=== PATIENT | male | born 1980 | race Caucasian/White ===

== ENCOUNTER 2020-08-24 11:08 | Observation (INO) | payer SELFPAY ==
[2020-08-24] VITALS (16 sets, daily range): BP systolic 114–150; BP diastolic 70–89; PULSE 80–122; RESP 11–26; TEMP 36.6–37.3; O2SAT 98–100; BMI 22.2
--- NOTE | ~2020-08-24 | US_ITS ---
EXAMINATION: US abdomen limited EXAM DATE: 08/24/2020 14:07 INDICATION: Abnormal liver function tests. TECHNIQUE: Multiple grayscale and Doppler images of the abdomen right upper quadrant were obtained (areli y a technologist who performed the scan) and subsequently reviewed. There is no prior study for bowen mary. FINDINGS: The pancreatic head and body are normal in appearance. The pancreatic tail is not visualized. The l iver has normal echogenicity and contour. There are no focal liver lesions identified. There is no evidence of intrahepatic biliary duct dilation. Portal venous flow was seen in the hepatopedal, nor mal direction and has normal Doppler waveform. No right-sided hydronephrosis. Common bile duct measures 3 mm, which is normal. The gallbladder wall is normal in thickness, with ex pected amount of distention. No sonographic evidence of pericholecystic fluid. There is no cholelit hiases. Technologist performing exam reports patient did not demonstrate sonographic Gama's sign. Please note that this sign is less reliable in patients who have received pain medication. IMPRESSION: 1. Unremarkable abdominal ultrasound exam. Reviewed, dictated and finalized at location B.
[2020-08-24 11:44] LABS: Basophils Absolute Auto 0.1 K/mm3 (0.0-0.1); Basophils Percent Auto 0.8 % (0.2-1.2); Eosinophils Absolute Auto 0.1 K/mm3 (0-0.3); Eosinophils Percent Auto 0.8 % (0-4.4); Hematocrit 47.5 % (42.0-52.0); Hemoglobin 16.3 g/dL (14.0-18.0); Immature Granulocyte Absolute 0.06 K/mm3 (0.00-0.031); Immature Granulocyte Percent A 0.5 % (0-0.5); Lymphocytes Absolute Auto 1.47 K/mm3 (0.9-3.2); Lymphocytes Percent Auto 11.1 % (18.3-44.2); Mean Corpuscular HGB Conc 34.3 g/dl (32-36); Mean Corpuscular Hemoglobin 33.2 pg (26-34); Mean Corpuscular Volume 96.7 fl (80-100); Mean Platelet Volume 11.1 fl (7.4-10.4); Monocytes Absolute Auto 1.6 K/mm3 (0.1-0.6); Neutrophils Percent Auto 74.8 % (45.5-73.1); Platelet Count Result 186 k/mm3 (150-375); Red Blood Count 4.91 M/mm3 (4.6-6.20); Red Cell Distribution Width 13.9 % (11.5-14.5); White Blood Count 13.3 K/mm3 (4.5-10.0)
[2020-08-24 12:03] LABS: Alanine Aminotransferase 199 U/L (4-50); Albumin Level 5.8 g/dL (3.5-5.1); Alkaline Phosphatase 203 U/L (38-126); Anion Gap 20 mmol/L (8-16); Aspartate Amino Transferase 207 U/L (17-59); Bilirubin,Total 1.7 mg/dL (0.2-1.3); Blood Urea Nitrogen 26 mg/dL (9-20); Calcium 11.8 mg/dL (8.4-10.2); Carbon Dioxide 19 mmol/L (22-30); Chloride 95 mmol/L (98-107); Estimated CRCL calculation 49 ml/min; Estimated Glomerular Filt Rate 37; Glucose 104 mg/dL (75-110); Potassium 4.6 mmol/L (3.4-5.0); Sodium 134 mmol/L (137-145)
[2020-08-24 12:08] LABS: Creatine Kinase 121 U/L (55-170)
[2020-08-24 12:32] LABS: Add Urine Microscopic? YES; Appearance Urine Cloudy (Clear); Bilirubin Urine 1+ (Negative); Color Urine Amber (Yellow); Glucose Urine UA Negative (Negative); Hyaline Casts Urine 50+ /lpf; Ketones Urine Trace mg/dL (Negative); Leukocyte Esterase Ur Trace LEU/UL (Negative); Mucus Urine Moderate /lpf; Nitrate Urine Negative (Negative); Protein Urine 2+ mg/dL (Negative); RBC Urine 0-2 /hpf (0-2); Specific Grav Ur 1.021 (1.001-1.035); Squamous Epithelial Cell Urine Moderate /hpf (Few)
[2020-08-24 12:33] LABS: Blood Urine Negative (Negative)
--- NOTE | 2020-08-24 13:13 | ED.GENADULT ---
HPI - General Adult General Chief complaint: Unspecified Stated complaint: dehydration Time Seen by Provider: 08/24/20 11:52 Source: patient History of Present Illness HPI narrative: Patient is a 40 y/o male complaining of generalized body cramping pain since yesterday afternoon. He rates his pain as 10/10. There is no alleviating or exacerbating factor. 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 He has no nausea or vomiting. Related Data Home Medications Medication Instructions Recorded Confirmed No Home Medications 08/24/20 08/24/20 Allergies Allergy/AdvReac Type Severity Reaction Status Date / Time No Known Allergies Allergy Mild Verified 08/24/20 15:47 Review of Systems Constitutional: Constitutional: Denies chills, Reports excessive sweating, Denies fever(s), Denies headache(s) and Denies weakness Eyes: Eyes: Denies blurry vision ENT: Denies headache(s) and Denies neck pain Cardiovascular: Cardiovascular: Denies chest pain and Denies dyspnea Respiratory: Respiratory: Denies cough and Denies dyspnea Gastrointestinal: Gastrointestinal: Denies abdominal pain, Denies diarrhea, Denies nausea and Denies vomiting Genitourinary: Genitourinary: Denies hematuria and Denies dysuria Musculoskeletal: Musculoskeletal: Denies back pain, Reports muscle cramps and Denies neck pain Neurologic: Denies headache(s) and Denies weakness [facility] Social History Social History Smoking packs per day: 2 Smoking cigarettes per day: 40.0 Smoking status: Current every day smoker Tobacco type: cigarettes Alcohol intake: current Drinks per week: 60 Substance use type: marijuana Gender identity (if verbalized by the patient): Male Spiritual care concerns: No Exam Const: General: no acute distress and well developed Orientation/consciousness: oriented to person, oriented to place, oriented to time and patient oriented x3 HENMT: Head: normocephalic Ears: external ears normal General nose exam: Normal external nose present Eyes: General: appearance normal, both eyes and all related structures Conjunctivae: conjunctivae normal Neck: Neck: normal visual inspection and full ROM Chest: Chest palpation & inspection: normal inspection of the chest and no tenderness Resp: Effort & Inspection: normal respiratory effort Auscultation: clear to auscultation bilaterally Cardio: Rate: regular rate and tachycardic GI: GI Palp: No abdominal tenderness and Yes Soft to palpation Skin: General skin exam: normal color and turgor normal Neuro: General: oriented to person, oriented to place, oriented to time and patient oriented x3 Cognition (Neuro): normal cognition Extrem: General: normal to inspection, full ROM and no pedal edema Psych: Appearance: grossly normal Mental Status: mental status grossly normal Affect: normal affect Course Consultations Consultation #1: Discussed with [facility] Gertrude, who agrees to admit. Date: 08/24/20 Time: 13:18 Vital Signs Vital signs: Vital Signs Pulse Rate 122 H 08/24/20 11:13 Respiratory Rate 18 08/24/20 11:13 Blood Pressure 144/89 H 08/24/20 11:13 Pulse Oximetry 100 08/24/20 11:13 Temperature 37.3 C 08/24/20 15:27 Pulse Rate 99 08/24/20 16:52 Respiratory Rate 16 08/24/20 15:27 Blood Pressure 150/83 H 08/24/20 15:27 Pulse Oximetry 99 08/24/20 15:27 Medical Decision Making Vital Signs Vital Signs: Vital Signs Pulse Rate 122 H 08/24/20 11:13 Respiratory Rate 18 08/24/20 11:13 Blood Pressure 144/89 H 08/24/20 11:13 Pulse Oximetry 100 08/24/20 11:13 Temperature 37.3 C 08/24/20 15:27 Pulse Rate 99 08/24/20 16:52 Respiratory Rate 16 08/24/20 15:27 Blood Pressure 150/83 H 08/24/20 15:27 Pulse Oximetry 99 08/24/20 15:27 Lab Data Result diagrams: 08/24/20 11:38 08/24/20 11:38 Labs: Lab Results
--- NOTE | 2020-08-24 13:14 | ECG_ITS ---
Measurements Intervals Webb Rate: 73 P: 27 CT: 123 QRS: -6 QRSD: 105 T: 65 QT: 375 QTc: 416 Interpretive Statements SINUS RHYTHM EARLY PRECORDIAL R/S TRANSITION PEAKED T WAVES- CONSIDER HYPERKALEMIA OR ISCHEMIA ABNORMAL ECG Electronically Signed On 08-24-2020 17:14:29 CDT by Lobito Salguero D.O.
[2020-08-24] MEDS: SODIUM CHLORIDE 0.9% IV 1,000 ML 999 ML IV CONT (13:30)
--- NOTE | 2020-08-24 14:30 | ADMGEN ---
This patient, Lm Kline, was admitted to Medical Room 340-01. Patient/family oriented to hospital policies and general routines including ID bracelet, bed and alarms, visiting hours, pain management, procedures, bathroom and other care routines, personal items, smoking policy, room service/diet, and visiting hours. Information on how to activate the Rapid Response Team has been discussed. Patient/Family are encouraged to report perceived risks to care and to ask questions if they do not understand what they are told or what they should do.
[2020-08-24] MEDS: SODIUM CHLORIDE 0.9% IV 1,000 ML 125 ML IV CONT ×2 (15:39→23:24)
[2020-08-24 15:50] LABS: Hepatitis B Surface Antigen Negative (Negative)
[2020-08-24 15:55] LABS: HAV RESULT Negative (Negative); Hepatitis B Core IgM Result Negative (Negative)
--- NOTE | 2020-08-24 16:01 | PM.IMHP ---
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 intake, his CK levels are normal, emergency depart patient was given 1 L bolus and started the patient on Normal saline 125 cc an hour, will continue monitor patient kidney function and further recommendation to follow. patient is admitted under observation status Chief Complaint: generalized body aches and cramps Review of Systems Review of Systems: All systems reviewed & are unremarkable except as noted in HPI and below PMFSH Social History Social History Smoking packs per day: 2 Smoking cigarettes per day: 40.0 Smoking status: Current every day smoker Tobacco type: cigarettes Alcohol intake: current Drinks per week: 60 Substance use type: marijuana Gender identity (if verbalized by the patient): Male Spiritual care concerns: No Meds Home Medications and Allergies Home Medications Medication Instructions Recorded Confirmed Type No Home Medications 08/24/20 08/24/20 History Allergies Allergy/AdvReac Type Severity Reaction Status Date / Time No Known Allergies Allergy Mild Verified 08/24/20 15:47 Vital Signs Vital Signs - 24 hr 08/24/20 11:13 08/24/20 11:18 08/24/20 11:26 Temperature Pulse Rate 122 H 121 H 122 H Respiratory Rate 18 26 H Blood Pressure 144/89 H Pulse Oximetry 100 100 08/24/20 11:35 08/24/20 11:45 08/24/20 13:04 Temperature Pulse Rate 111 H 110 H 113 H Respiratory Rate 21 H 26 H 25 H Blood Pressure Pulse Oximetry 100 98 98 08/24/20 13:16 08/24/20 13:30 08/24/20 13:31 Temperature 99.0 F Pulse Rate 114 H 105 H 104 H Respiratory Rate 20 11 L 15 Blood Pressure 114/70 Pulse Oximetry 99 99 100 08/24/20 14:19 08/24/20 15:27 Temperature 99.2 F Pulse Rate 99 Respiratory Rate 16 Blood Pressure 150/83 H Pulse Oximetry 99 99 Exam Narrative: Exam Narrative: Patient is comfortable, NAD HEENT: eyes are clear and none icteric LUNGS:CTA HEART: RR S1S2 ABD: BS+, Soft and nontender Lower extremities: no edema SKIN: nonjaundiced Neuro: grossly intact. H&P: Results Labs Labs: Short CBC 08/24/20 Range/Units 11:38 WBC 13.3 H (4.5-10.0) K/mm3 Hgb 16.3 (14.0-18.0) g/dL Hct 47.5 (42.0-52.0) % Plt Count 186 (150-375) k/mm3 BMP 08/24/20 11:38 Sodium 134 L Potassium 4.6 Chloride 95 L Carbon Dioxide 19 L BUN 26 H Creatinine 2.00 H Glucose 104 Calcium 11.8 H Cardiac Enzymes 08/24/20 Range/Units 11:38 Total Creatine Kinase 121 (55-170) U/L Liver Function 08/24/20 Range/Units 11:38 Total Bilirubin 1.7 H (0.2-1.3) mg/dL AST 207 H (17-59) U/L ALT 199 H (4-50) U/L Alkaline Phosphatase 203 H (38-126) U/L Albumin 5.8 H (3.5-5.1) g/dL Urine 08/24/20 Range/Units 12:03 Urine Color Germaine (Yellow) Urine Appearance Cloudy H (Clear) Urine pH 5.0 (5.0-9.0) Ur Specific Spade 1.021 (1.001-1.035) Urine Protein 2+ H (Negative) mg/dL Urine Glucose (UA) Negative (Negative) mg/dL Assessment and Plan Assessment and plan (1) Dehydration: Code(s): E86.0 - Dehydration Status: Acute Assessment and Plan: 08/24/20 16:01 Patient is a 40-year-old male with no past medical history, presented emergency department with generalized body ache and cramping 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 intake, his CK levels are normal, emergency depart patient
[2020-08-24 16:14] LABS: Hepatitis C Virus Antibody Reactive (Negative)
[2020-08-24] MEDS: NICOTINE (*PBKC) 21 MG PATCH 1 PATCH TRANSDERM (17:00)
[2020-08-24 17:49] LABS: Hepatitis B Surface Antigen Negative (Negative)
[2020-08-24 17:55] LABS: HAV RESULT Negative (Negative); Hepatitis B Core IgM Result Negative (Negative)
[2020-08-24 18:11] LABS: Hepatitis C Virus Antibody Reactive (Negative)
[2020-08-24] MEDS: LORazepam INJ (*CRX) 2 MG/ML VIAL 1 MG IV PUSH (20:37)
[2020-08-24] MEDS: chlordiazePOXIDE (*CRX) 25 MG CAPSULE PO (23:22)
[2020-08-25 04:00] VITALS: PULSE 77
[2020-08-25 04:13] VITALS: BP 129/75; PULSE 77; RESP 20; TEMP 36.1; O2SAT 100
[2020-08-25] MEDS: LORazepam INJ (*CRX) 2 MG/ML VIAL 1 MG IV PUSH (04:20)
[2020-08-25] MEDS: chlordiazePOXIDE (*CRX) 25 MG CAPSULE PO (05:02)
[2020-08-25 06:23] LABS: Hematocrit 41.9 % (42.0-52.0); Immature Platelet Fraction Pct 10.3 % (0.9-11.2); Mean Corpuscular HGB Conc 33.4 g/dl (32-36); Mean Corpuscular Hemoglobin 33.6 pg (26-34); Mean Corpuscular Volume 100.5 fl (80-100); Mean Platelet Volume 11.6 fl (7.4-10.4); Platelet Count Result 126 k/mm3 (150-375); Red Blood Count 4.17 M/mm3 (4.6-6.20); Red Cell Distribution Width 13.7 % (11.5-14.5); White Blood Count 6.8 K/mm3 (4.5-10.0)
[2020-08-25 06:45] LABS: Alanine Aminotransferase 180 U/L (4-50); Albumin Level 4.4 g/dL (3.5-5.1); Alkaline Phosphatase 135 U/L (38-126); Anion Gap 9 mmol/L (8-16); Aspartate Amino Transferase 238 U/L (17-59); Bilirubin,Total 1.6 mg/dL (0.2-1.3); Blood Urea Nitrogen 17 mg/dL (9-20); Calcium 9.4 mg/dL (8.4-10.2); Carbon Dioxide 25 mmol/L (22-30); Chloride 101 mmol/L (98-107); Creatine Kinase 107 U/L (55-170); Estimated CRCL calculation 114 ml/min; Estimated Glomerular Filt Rate > 60; Glucose 98 mg/dL (75-110); Magnesium 1.9 mg/dL (1.6-2.3); Potassium 3.8 mmol/L (3.4-5.0); Sodium 135 mmol/L (137-145)
[2020-08-25] MEDS: SODIUM CHLORIDE 0.9% IV 1,000 ML 125 ML IV CONT (07:20)
[2020-08-25] MEDS: NICOTINE (*PBKC) 21 MG PATCH 1 PATCH TRANSDERM (08:43)
--- NOTE | 2020-08-25 08:43 | PM.DS ---
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 intake, his CK levels are normal, emergency depart patient was given 1 L bolus and started the patient on Normal saline 125 cc an hour, will continue monitor patient kidney function and further recommendation to follow. (2) KAN (acute kidney injury): Code(s): N17.9 - Acute kidney failure, unspecified Status: Inactive Assessment and Plan: most likely secondary to dehydration will continue to hydrate the patient and monitor kidney function (3) Transaminitis: Code(s): R74.01 - Elevation of levels of liver transaminase levels Status: Acute Assessment and Plan: most likely secondary to dehydration to further evaluate will do the acute hepatitis panel. 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 intake, his CK levels are normal, emergency depart patient was given 1 L bolus and started the patient on Normal saline 125 cc an hour, will continue monitor patient kidney function and further recommendation to follow. patient is admitted under observation status Chief Complaint: generalized body aches and cramps Hospital Course: Patient was dehydrated and he was given IVF, this morning patient creatinine has improved and his symptoms gave improved, he is clinically stable, he wants to go home because there is no one take of his dog. will discharge patient with instruction to keep hydrate himself, avoid workign too much in the heat. will follow up with his primary care as soon as possible. Status at Discharge Functional status at discharge: independent ambulation Overall status at discharge: patient is back to baseline Time Spent with Patient Time attestation: Total time spent providing and/or coordinating discharge services:Patient was seen and examined at the time of the discharge Condition at discharge is stable Code status: Full code. Time spent preparing discharge summary, discharge medications, discussing discharge planning with case mgr and patient is 35 minutes. Time spent: Greater than 30 minutes Exam Narrative: Exam Narrative: Patient is comfortable, NAD HEENT: eyes are clear and none icteric LUNGS:CTA HEART: RR S1S2 ABD: BS+, Soft and nontender Lower extremities: no edema SKIN: nonjaundiced Neuro: grossly intact. DS: Data Data Completed and Pending Labs on day of discharge: Labs from last 24 hours 08/25/20 08/25/20 08/24/20 06:10 06:10 16:19 WBC 6.8 RBC 4.17 L Hgb 14.0 Hct 41.9 L MCV 100.5 H MCH 33.6 MCHC 33.4 RDW 13.7 Plt Count 126 L MPV 11.6 H Immature Gran % (Auto) Neut % (Auto) Lymph % (Auto) Riley % (Auto) Eos % (Auto) Baso % (Auto) Lymph # (Auto) Riley # (Auto) Eos # (Auto) Baso # (Auto) Abs Immat Gran (auto) Absolute Neuts (auto) Absolute Nucleated RBC Nucleated RBC % % Immature Plt Fraction 10.3 Sodium 135 L Potassium 3.8 Chloride 101 Carbon Dioxide 25 Anion Gap 9 BUN 17 Creatinine 0.80 Estim Creat Clear Calc 114 Estimated GFR > 60 G
== END 2020-08-25 10:40 | disposition home or self-care (01) ==
LOC: ANHED 12:11 → ANH3MED 16:01
PROVIDERS: Emergency Medicine; Admitting Provider Internal Medicine; Emergency Provider Emergency Medicine; Visit Provider Family Medicine
DX: E86.0 Dehydration (principal); N17.9 Acute kidney failure, unspecified; R74.01 Elevation of levels of liver transaminase levels; F17.210 Nicotine dependence, cigarettes, uncomplicated
CPT/HCPCS: 36415; 76705; 80053; 80074; 81001; 82550; 83735; 85025; 85027; 85055; 87086; 87088; 87522; 93005; 96361; 96374; 99285; A9270; G0378; G0379; J2060; J7030

== ENCOUNTER 2020-09-01 16:37 | Inpatient (IN) | payer MEDICAID, SELFPAY ==
--- NOTE | ~2020-09-01 | XR_ITS ---
EXAMINATION: XR chest 2V DATE: 09/01/2020 17:57 INDICATION: Left-sided chest pain. Shortness of breath. TECHNIQUE: PA and lateral views of the chest were obtained. COMPARISON: None FINDINGS: The lungs are clear with no focal airspace opacities, pulmonary edema, pleural effusion or pneumothor ax. The cardiomediastinal silhouette is normal. Mild thoracic spondylosis. IMPRESSION: 1. No acute cardiopulmonary disease. Reviewed, dictated and finalized at location A.
--- NOTE | 2020-09-01 16:39 | ECG_ITS ---
Measurements Intervals Dawn Rate: 120 P: TN: 0 QRS: 26 QRSD: 89 T: 69 QT: 309 QTc: 437 Interpretive Statements SINUS TACHYCARDIA CONSIDER INFERIOR INFARCT, AGE INDETERMINATE PEAKED T WAVES- CONSIDER HYPERKALEMIA OR ISCHEMIA BASELINE ARTIFACT- I, II, III, AVR, AVL ABNORMAL ECG Electronically Signed On 09-01-2020 21:30:53 CDT by Lobito Salguero D.O.
[2020-09-01 16:55] VITALS: BP 116/83; PULSE 117; RESP 20; TEMP 36.6; O2SAT 99
[2020-09-01 17:00] LABS: Basophils Absolute Auto 0.1 K/mm3 (0.0-0.1); Basophils Percent Auto 0.9 % (0.2-1.2); Eosinophils Absolute Auto 0.2 K/mm3 (0-0.3); Eosinophils Percent Auto 1.4 % (0-4.4); Hematocrit 47.9 % (42.0-52.0); Hemoglobin 16.6 g/dL (14.0-18.0); Immature Granulocyte Absolute 0.07 K/mm3 (0.00-0.031); Immature Granulocyte Percent A 0.5 % (0-0.5); Lymphocytes Absolute Auto 2.94 K/mm3 (0.9-3.2); Lymphocytes Percent Auto 19.5 % (18.3-44.2); Mean Corpuscular HGB Conc 34.7 g/dl (32-36); Mean Corpuscular Hemoglobin 33.6 pg (26-34); Mean Platelet Volume 11.6 fl (7.4-10.4); Monocytes Absolute Auto 2.2 K/mm3 (0.1-0.6); Monocytes Percent Auto 14.3 % (2.6-8.5); Neutrophils Absolute Auto 9.6 K/mm3 (1.3-6.7); Neutrophils Percent Auto 63.4 % (45.5-73.1); Platelet Count Result 238 k/mm3 (150-375); Red Blood Count 4.94 M/mm3 (4.6-6.20); Red Cell Distribution Width 13.5 % (11.5-14.5); White Blood Count 15.1 K/mm3 (4.5-10.0)
[2020-09-01 17:21] LABS: Alanine Aminotransferase 255 U/L (4-50); Albumin Level 5.9 g/dL (3.5-5.1); Alkaline Phosphatase 180 U/L (38-126); Anion Gap 22 mmol/L (8-16); Aspartate Amino Transferase 264 U/L (17-59); Bilirubin,Total 0.9 mg/dL (0.2-1.3); Blood Urea Nitrogen 34 mg/dL (9-20); Calcium 10.8 mg/dL (8.4-10.2); Carbon Dioxide 22 mmol/L (22-30); Chloride 90 mmol/L (98-107); Estimated CRCL calculation 29 ml/min; Estimated Glomerular Filt Rate 21; Glucose 147 mg/dL (75-110); Potassium 4.1 mmol/L (3.4-5.0); Sodium 134 mmol/L (137-145)
--- NOTE | 2020-09-01 17:21 | PC.NURSE ---
Pt states that he smokes marijuana and is a daily drinker of a pint of vodka and several tall boys and shots daily .
[2020-09-01 17:22] LABS: Troponin I < 0.012 ng/mL (0.000-0.034)
[2020-09-01] MEDS: ASPIRIN 81 MG CHEWABLE TABLET 324 MG PO (17:29)
[2020-09-01 17:30] VITALS: BP 134/99; PULSE 120; RESP 20; TEMP 36.8; O2SAT 99
[2020-09-01] MEDS: LORazepam INJ (*CRX) 2 MG/ML VIAL 1 MG IV PUSH (17:30)
--- NOTE | 2020-09-01 17:31 | ED.GENADULT ---
HPI - General Adult General Chief complaint: Chest Pain <Cayetano Muñoz PA-C - Last Filed: 09/01/20 18:39> Stated complaint: MULT C/O <Cayetano Muñoz PA-C - Last Filed: 09/01/20 18:39> Time Seen by Provider: 09/01/20 17:05 <Cayetano Muñoz PA-C - Last Filed: 09/01/20 18:39> Source: patient, RN notes reviewed and old records reviewed <Cayetano Muñoz PA-C - Last Filed: 09/01/20 18:39> Mode of arrival: ambulatory <Cayetano Muñoz PA-C - Last Filed: 09/01/20 18:39> Limitations: no limitations <Cayetano Muñoz PA-C - Last Filed: 09/01/20 18:39> History of Present Illness HPI narrative: Patient is a 40-year-old male who presents noting diffuse cramps 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 Patient notes of vodka alcohol abuse as well as beer daily noting he drinks a pint of vodka with 2 tall boys. Patient denies any URI symptoms. Patient notes diffuse cramping that is a moderate aching pain. <Cayetano Muñoz PA-C - Last Filed: 09/01/20 18:39> Related Data Allergies/adverse reactions: Allergies Allergy/AdvReac Type Severity Reaction Status Date / Time No Known Allergies Allergy Mild Verified 08/24/20 15:47 <Cayetano Muñoz PA-C - Last Filed: 09/01/20 18:39> Review of Systems Review of Systems: All systems reviewed & are unremarkable except as noted in HPI and below <Cayetano Muñoz PA-C - Last Filed: 09/01/20 18:39> COUNTS INCLUDE 234 BEDS AT THE [facility] Past Medical History Medical History: Medical History (Updated 09/01/20 @ 18:39 by Cayetano Muñoz PA-C) KAN (acute kidney injury) Alcohol abuse Dehydration <Cayetano Muñoz PA-C - Last Filed: 09/01/20 18:39> Social History Social History: Social History Smoking packs per day: 2 Smoking cigarettes per day: 40.0 Smoking status: Current every day smoker Tobacco type: cigarettes Alcohol intake: current Drinks per week: 60 Substance use type: marijuana Gender identity (if verbalized by the patient): Male Spiritual care concerns: No <Cayetano Muñoz PA-C - Last Filed: 09/01/20 18:39> Exam Narrative: Exam Narrative: GENERAL: Ill-appearing, well-nourished, acute pain distress HEAD: Normocephalic, atraumatic. EYES: PERRLA and EOMI. ENT: Nares clear, no rhinorrhea or epistaxis. Mucous membranes moist. Oropharynx without tonsillar hypertrophy exudate or other lesions. NECK: Supple. No adenopathy or masses. CHEST: Clear to auscultation. No respiratory distress. No wheezes rales or rhonchi HEART: Regular rate and rhythm. No murmur heard. Normal peripheral pulses. ABDOMEN: Soft, nontender, nondistended EXTREMITIES: Normal range of motion. No edema. SKIN: Warm, dry, no rash. NEURO: No focal deficits. Alert and oriented x3. Cranial nerves II through XII grossly intact. Normal speech PSYCH: Normal mood and affect. <Cayetano Muñoz PA-C - Last Filed: 09/01/20 18:39> Course TECHNOLOGY METHODOLOGY CONSULTANT/PA Physician Supervision For this encounter, I have reviewed the PA documentation, treatment plan and medical decision making: And I have had [id number] time with the patient. Heart regular rate and rhythm without murmur, lungs clear to all station bilaterally abdomen soft nontender discussed with patient since admission all questions were answered patient agreement at this time <Iglesia Otero DO - Last Filed: 09/01/20 18:30> Consultations Consultation #1: Discussed case with the hospitalist Diana who has accepted the patient patient will be placed on med telemetry floor with reevaluation in hospital <Cayetano Muñoz PA-C - Last Filed: 09/01/20 18:39> Date: 09/01/20 <Cayetano Muñoz PA-C
[2020-09-01 17:42] LABS: INR 0.9; Prothrombin Time 12.1 Seconds (11.1-14.7)
[2020-09-01 17:43] LABS: Ethanol 46 mg/dL (<10)
[2020-09-01 17:45] LABS: Partial Thromboplastin Time 26.5 SECONDS (22.3-36.8)
[2020-09-01 17:53] LABS: Lipase 174 U/L (23-300); Magnesium 2.5 mg/dL (1.6-2.3); Phosphorus 9.8 mg/dL (2.5-4.5)
[2020-09-01] MEDS: SODIUM CHLORIDE 0.9% IV 1,000 ML 999 ML IV CONT (18:00)
[2020-09-01] MEDS: THIAMINE HCL INJ 100 MG, FOLIC ACID INJ 1 MG, MULTIVITAMINS-12 INJ VIAL 1 5 ML, MULTIVI... 999 MG IV CONT (18:00)
[2020-09-01 18:05] LABS: Lactic Acid Reflex 2.3 mmol/L (0.7-2.1)
[2020-09-01 18:14] LABS: Creatine Kinase 171 U/L (55-170)
[2020-09-01] MEDS: chlordiazePOXIDE (*CRX) 25 MG CAPSULE PO (18:55)
[2020-09-01 19:20] VITALS: BP 136/81; PULSE 100; RESP 20; TEMP 36.8; O2SAT 100
[2020-09-01 20:54] LABS: Reflex Lactic Acid Yes or No Add Lactic
[2020-09-01 21:00] VITALS: BP 128/78; BP 146/78; PULSE 100; PULSE 93; RESP 18; RESP 20; TEMP 36.3; TEMP 37; O2SAT 100; O2SAT 98; BMI 22.8
[2020-09-01 21:25] LABS: Lactic Acid 0.8 mmol/L (0.7-2.1)
--- NOTE | 2020-09-01 22:00 | PM.IMHP ---
H&P: HPI History of Present Illness Date/Time: 09/01/20 22:00 Chief Complaint: Muscle cramps, nausea, and vomiting. Narrative: This is a 40-year-old male smoker with history of alcohol abuse who presented to the emergency department earlier today from home for evaluation of muscle cramps, nausea, and vomiting. 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 He drinks at least 3 to 4, 32 oz cups of water a day but he still feels dehydrated at the end of the day. In fact he was admitted to the hospital overnight on August 24 for heat exhaustion and acute kidney injury. He felt pretty good on discharge however still had intermittent lower extremity cramps. Sunday he had a rough day at work with severe, diffuse muscle cramps. By Sunday he was feeling a little bit better and was able to work throughout the day without issue although he admits that he did not work as hard as usual. Unfortunately he was only able to work a few hours today due to severe cramping, nausea, and vomiting. He has also been feeling lightheaded and dizzy and he has not urinated since yesterday and he reportedly only urinated 1 time yesterday. Once again he was found to have an acute kidney injury with evidence of dehydration and he is being admitted in this setting. At the time my evaluation he feels that his cramps have improved with IV fluids received in the emergency department. He is a bit tremulous despite receiving 25 mg of Librium and 1 mg of Ativan in the emergency department. He typically begins having tremors within at least 24 hours of his last drink, and he last had a shot of alcohol earlier today. No history of alcohol withdrawal seizure. He is not experiencing any hallucinations. No further nausea or vomiting since arrival to the floor. He has not had any diarrhea. No fever or chills. He is interested in detoxing and trying rehab again for his alcoholism. Review of Systems Review of Systems: Narrative: Twelve systems were reviewed with pertinent positives and negatives as per HPI. He denies cold and flu symptoms. No known exposure to those positive for COVID-19. No hematemesis, melena, or hematochezia. He denies dysuria. No chest pain. He did have some shortness of breath earlier today. No pleuritic pain or palpitations. Except as documented, all other systems were reviewed and are negative. [facility] Past Medical History Medical History (Updated 09/01/20 @ 23:39 by Domenica Trevino PA-C) Alcohol abuse Anxiety Bipolar disorder Depression Hepatitis C Treated many years ago when he lived in [place]. Nicotine dependence Posttraumatic stress disorder Surgical History Surgical History (Updated 09/01/20 @ 23:30 by Domenica Trevino PA-C) No history of previous surgery Family History Family History Father Diabetes mellitus Social History Social History (Updated 09/01/20 @ 23:32 by Domenica Trevino PA-C) Social History: The patient lives in [place] with his dog. 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 Occasional marijuana use. He has had problems with alcohol for quite some time and was sober for nearly 5 years but began drinking again about 4 years ago. he typically drinks 4 to 5 shots of fireball in night as well as to tall boys and 1 pt of vodka. About 4 months ago he was drinking 2 pt of vodka but has cut back. He designates his friend, Mason Mac, as his surrogate decision maker. Code status: Full code. Meds Home Medications and Allergies Home Medications Medication Instructions Recorded Confirmed Type nicotine [Nicoderm CQ] 1 patch TRANSDERMAL QAM #28 ea 08/25/20 09/01/20 Rx Allergies Allergy/AdvReac Type Severity Reaction Status Date / Time No Known Allergies Allergy Mild Verified 08/24/20 15:47 Vital Signs Vital Signs - 24 hr 07
--- NOTE | 2020-09-01 22:32 | PC.NURSE ---
This patient, Lm Kline, was admitted to 3 Med Surg Room 323-02 @2100. Report taken from Emiliana in ER. Patient/family oriented to hospital policies and general routines including ID bracelet, bed and alarms, visiting hours, pain management, procedures, bathroom and other care routines, personal items, smoking policy, room service/diet, and visiting hours. Information on how to activate the Rapid Response Team has been discussed. Patient/Family are encouraged to report perceived risks to care and to ask questions if they do not understand what they are told or what they should do.
--- NOTE | 2020-09-01 22:49 | PC.NURSE ---
patient stated that he chronically pukes for 5-10min every morning.. due to his alcoholism. JULIAN
[2020-09-01] MEDS: LACTATED RINGERS 1,000 ML 150 ML IV CONT (23:03)
[2020-09-01] MEDS: FAMOTIDINE 20 MG/2 ML VIAL IV PUSH (23:03)
[2020-09-01 23:30] LABS: Add Urine Microscopic? NO; Appearance Urine Clear (Clear); Bilirubin Urine Negative (Negative); Blood Urine Negative (Negative); Color Urine Colorless (Yellow); Glucose Urine UA Negative (Negative); Ketones Urine Negative (Negative); Leukocyte Esterase Ur Negative LEU/UL (Negative); Nitrate Urine Negative (Negative); Protein Urine Negative (Negative); Specific Grav Ur 1.005 (1.001-1.035); Urobilinogen Urine Negative mg/dL (<2.0)
[2020-09-01 23:37] LABS: Amphetamine Screen Urine Negative (Negative); Barbiturate Screen Urine Negative (Negative); Benzodiazepines Screen Urine Negative (Negative); Cannabinoid Screen Urine Positive (Negative); Cocaine Screen Urine Negative (Negative); Methadone Screen Urine Negative (Negative); Opiate Screen Urine Negative (Negative); Phencyclidine Screen Urine Negative (Negative)
[2020-09-02] VITALS (9 sets, daily range): BP systolic 113–135; BP diastolic 62–71; PULSE 60–91; RESP 16–20; TEMP 36.3–36.7; O2SAT 99–100
[2020-09-02 00:11] LABS: Anion Gap 11 mmol/L (8-16); Blood Urea Nitrogen 25 mg/dL (9-20); Calcium 9.2 mg/dL (8.4-10.2); Carbon Dioxide 26 mmol/L (22-30); Chloride 94 mmol/L (98-107); Creatine Kinase 147 U/L (55-170); Estimated CRCL calculation 69 ml/min; Estimated Glomerular Filt Rate 56; Glucose 136 mg/dL (75-110); Potassium 3.2 mmol/L (3.4-5.0); Sodium 131 mmol/L (137-145)
[2020-09-02] MEDS: SODIUM CHLORIDE 0.9% IV 1,000 ML 150 ML IV CONT ×2 (00:13→06:03)
[2020-09-02] MEDS: chlordiazePOXIDE (*CRX) 25 MG CAPSULE 50 MG PO ×3 (00:14→11:47)
[2020-09-02] MEDS: NICOTINE (*PBKC) 21 MG PATCH 1 PATCH TRANSDERM ×2 (00:14→08:26)
[2020-09-02 06:44] LABS: Basophils Absolute Auto 0.1 K/mm3 (0.0-0.1); Basophils Percent Auto 1.1 % (0.2-1.2); Eosinophils Absolute Auto 0.2 K/mm3 (0-0.3); Eosinophils Percent Auto 2.9 % (0-4.4); Hematocrit 42.9 % (42.0-52.0); Hemoglobin 14.3 g/dL (14.0-18.0); Immature Granulocyte Absolute 0.03 K/mm3 (0.00-0.031); Immature Granulocyte Percent A 0.5 % (0-0.5); Immature Platelet Fraction Pct 9.7 % (0.9-11.2); Lymphocytes Absolute Auto 1.46 K/mm3 (0.9-3.2); Lymphocytes Percent Auto 23.7 % (18.3-44.2); Mean Corpuscular HGB Conc 33.3 g/dl (32-36); Mean Corpuscular Hemoglobin 33.5 pg (26-34); Mean Corpuscular Volume 100.5 fl (80-100); Mean Platelet Volume 11.5 fl (7.4-10.4); Monocytes Absolute Auto 0.8 K/mm3 (0.1-0.6); Neutrophils Absolute Auto 3.6 K/mm3 (1.3-6.7); Neutrophils Percent Auto 58.8 % (45.5-73.1); Platelet Count Result 146 k/mm3 (150-375); Red Blood Count 4.27 M/mm3 (4.6-6.20); Red Cell Distribution Width 13.5 % (11.5-14.5); White Blood Count 6.2 K/mm3 (4.5-10.0)
[2020-09-02 06:57] LABS: Alanine Aminotransferase 154 U/L (4-50); Albumin Level 4.5 g/dL (3.5-5.1); Alkaline Phosphatase 129 U/L (38-126); Anion Gap 8 mmol/L (8-16); Aspartate Amino Transferase 151 U/L (17-59); Bilirubin,Total 1.1 mg/dL (0.2-1.3); Blood Urea Nitrogen 21 mg/dL (9-20); Calcium 9.1 mg/dL (8.4-10.2); Carbon Dioxide 28 mmol/L (22-30); Chloride 99 mmol/L (98-107); Creatine Kinase 136 U/L (55-170); Estimated CRCL calculation 95 ml/min; Estimated Glomerular Filt Rate > 60; Glucose 93 mg/dL (75-110); Magnesium 2.4 mg/dL (1.6-2.3); Potassium 3.7 mmol/L (3.4-5.0); Sodium 135 mmol/L (137-145)
[2020-09-02] MEDS: THERAPEUTIC MULTIVITAMINS/MINERALS TAB (*BKC) 1 TABLET PO (08:26)
[2020-09-02] MEDS: FOLIC ACID 1 MG TABLET PO (08:26)
[2020-09-02] MEDS: THIAMINE HCL 100 MG TABLET PO (08:26)
[2020-09-02 09:01] LABS: Iron 183 ug/dL (49-181)
[2020-09-02 09:11] LABS: Percent Iron Saturation 51 % (20-50)
[2020-09-02 09:51] LABS: Folic Acid 10.4 ng/mL (2.76->20)
--- NOTE | 2020-09-02 13:08 | PM.IMPN ---
Progress Note: A&P Assessment and Plan (1) Acute renal failure: Code(s): N17.9 - Acute kidney failure, unspecified Status: Acute Assessment and Plan: Secondary to dehydration from vomiting and significant insensible losses while working out in the heat. He is receiving aggressive IV fluid rehydration with improvement of his Creatinine from 3.3 to 1.0. Will decrease IV fluids down to 75 cc/hr and recheck BMP in the morning. (2) Dehydration: Code(s): E86.0 - Dehydration Status: Acute Assessment and Plan: Plan is as detailed above. (3) Elevated LFTs: Code(s): R79.89 - Other specified abnormal findings of blood chemistry Status: Acute Assessment and Plan: Likely due to chronic alcohol use. He was treated for hepatitis-C many years ago. Right upper quadrant ultrasound was unremarkable last week. Stable when compared to LFTs drawn last week. (4) Alcohol abuse: Code(s): F10.10 - Alcohol abuse, uncomplicated Status: Acute Assessment and Plan: Schedule Librium will try decreasing to 25 mg Q6hrs. Ativan is available as needed per CIWA protocol. Continue thiamine, folic acid, and multivitamin supplementation. the patient is interested in seeking help for his alcohol abuse. Care coordination is going to be giving him resources at this time (5) Nicotine dependence: Code(s): F17.200 - Nicotine dependence, unspecified, uncomplicated Status: Acute Assessment and Plan: I feel the patient needs to focus on curbing his alcohol addiction prior to smoking cessation. Nicotine patch available if needed. Time Spent With Patient Time with patient: 25 - 35 minutes Subjective Date/time seen: 09/02/20 13:08 Interval history: Date of Service 09/02/20: He reports his tremors are coming back from his withdrawal. He is having some diarrhea this morning and is feeling anxious. He has been eating and drinking without any issues, denies any nausea or vomiting. He reports diffuse body aches, but denies any more cramping of his extremities. he does report a slight cough with clear/ light yellow sputum production which just started yesterday. He denies any chest pain, shortness of breath, fever, chills, leg swelling, calf pain, lightheadedness, dizziness or any other symptoms at this time. Review of Systems Review of Systems: All systems reviewed & are unremarkable except as noted in HPI and below Exam Narrative: Exam Narrative: General: 40-year-old man sitting up in bed watching TV. Appears comfortable, but tearful at this time. In no acute distress. Skin: No jaundice or cyanosis. Good skin turgor. Neck: Full range of motion. Supple. Respiratory: Lungs are clear to auscultation bilaterally. No wheezing, rales or rhonchi noted. No bony chest wall tenderness. Cardiovascular: The heart has a regular rate and rhythm without murmur. Lower extremities: No lower extremity edema. Distal pulses are easily palpated. No calf tenderness to palpation. Gastrointestinal: The abdomen is soft, nontender and nondistended with active bowel sounds. Psychiatric: Tearful. Neurologic: Slight tremors of hands. No focal deficits. Speech is clear. No facial drooping. Objective Data Vital Signs Vital Signs: Vital Signs - 24 hr 09/01/20 16:55 09/01/20 17:30 09/01/20 19:20 Temperature 97.9 F 98.2 F 98.2 F Pulse Rate 117 H 120 H 100 Pulse Rate [Right Radial] Respiratory Rate 20 20 20 Blood Pressure 116/83 134/99 H 136/81 Pulse Oximetry 99 99 100 09/01/20 21:00 09/02/20 04:00 09/02/20 06:00 Temperature 98.6 F 97.6 F Pulse Rate 100 84 78 Pulse Rate [Right Radial] 84 Respiratory Rate 18 20 Blood Pressure 128
[2020-09-02] MEDS: SODIUM CHLORIDE 0.9% IV 1,000 ML 75 ML IV CONT ×2 (13:14→23:38)
[2020-09-02] MEDS: LORazepam INJ (*CRX) 2 MG/ML VIAL 1 MG IV PUSH ×2 (13:20→21:03)
[2020-09-02] MEDS: chlordiazePOXIDE (*CRX) 25 MG CAPSULE PO ×2 (17:35→23:37)
[2020-09-02] MEDS: AZITHROMYCIN 250 MG TABLET 500 MG PO (17:35)
[2020-09-02] MEDS: ESCITALOPRAM OXALATE 5 MG TABLET PO (17:35)
[2020-09-03] VITALS: PULSE 70; PULSE 71
[2020-09-03] MEDS: LORazepam INJ (*CRX) 2 MG/ML VIAL 1 MG IV PUSH ×2 (03:27→11:20)
[2020-09-03 04:00] VITALS: PULSE 70
[2020-09-03] MEDS: chlordiazePOXIDE (*CRX) 25 MG CAPSULE PO ×2 (05:33→11:15)
[2020-09-03 06:00] VITALS: BP 143/62; PULSE 64; RESP 18; TEMP 36.2; O2SAT 100
[2020-09-03 07:16] LABS: Anion Gap 6 mmol/L (8-16); Blood Urea Nitrogen 15 mg/dL (9-20); Calcium 9.1 mg/dL (8.4-10.2); Carbon Dioxide 23 mmol/L (22-30); Chloride 110 mmol/L (98-107); Estimated CRCL calculation 117 ml/min; Estimated Glomerular Filt Rate > 60; Glucose 89 mg/dL (75-110); Potassium 4.2 mmol/L (3.4-5.0); Sodium 139 mmol/L (137-145)
[2020-09-03 08:00] VITALS: PULSE 74
[2020-09-03] MEDS: THERAPEUTIC MULTIVITAMINS/MINERALS TAB (*BKC) 1 TABLET PO (08:46)
[2020-09-03] MEDS: ESCITALOPRAM OXALATE 5 MG TABLET PO (08:46)
[2020-09-03] MEDS: FOLIC ACID 1 MG TABLET PO (08:46)
[2020-09-03] MEDS: AZITHROMYCIN 250 MG TABLET 500 MG PO (08:46)
[2020-09-03] MEDS: NICOTINE (*PBKC) 21 MG PATCH 1 PATCH TRANSDERM (08:46)
[2020-09-03] MEDS: THIAMINE HCL 100 MG TABLET PO (08:46)
--- NOTE | 2020-09-03 09:00 | ECG_ITS ---
Measurements Intervals [place] Rate: 55 P: 11 [place]: 112 QRS: -11 QRSD: 129 T: 55 QT: 442 QTc: 424 Interpretive Statements SINUS BRADYCARDIA WITH SHORT [place] INTERVAL VENTRICULAR PREEXCITATION/WPW EARLY PRECORDIAL R/S TRANSITION INFERIOR INFARCT, AGE INDETERMINATE ABNORMAL ECG Electronically Signed On 09-03-2020 12:42:46 CDT by Lobito Salguero D.O.
[2020-09-03] MEDS: ONDANSETRON INJ 4 MG/2 ML VIAL IV PUSH (11:15)
[2020-09-03 12:00] VITALS: PULSE 69
[2020-09-03 14:00] VITALS: BP 132/69; PULSE 76; RESP 14; TEMP 36.4; O2SAT 100
--- NOTE | 2020-09-03 14:19 | PM.DS ---
DS: Admitting Diagnosis Admitting Diagnosis Admitting Diagnosis: Muscle aches DS: Discharge Diagnosis Discharge Diagnosis (1) Acute renal failure: Code(s): N17.9 - Acute kidney failure, unspecified Status: Acute Assessment and Plan: The patient is a 40-year-old man with a history of smoking, alcohol abuse for the last 4 years, who presented to the emergency room for evaluation of muscle cramps, nausea and vomiting. 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 He was admitted overnight on 08/24/2020 for heat exhaustion and KAN. He improved with IV fluids at that time was discharged home. He continued to work and drink alcohol which includes a half 5th of vodka daily, 4 shots of fire ball, and a few tall Boy beers. He does have withdrawal symptoms when he stops drinking. He also came into the hospital to help him detox from alcohol so he can get help. initial vitals showed he was afebrile, tachycardic, normal respiratory rate, oxygenation on room air, normal blood pressure 116/83. Initial labs showed leukocytosis at 15,100, normal coag panel, hyponatremia at 134, elevated creatinine at 3.3, BUN 34 showing KAN, lactic acid elevated 2.3 most likely due to dehydration, elevated LFTs which appear to be stable from prior hospitalization, negative troponin, normal lipase, CRP was slightly elevated 171. Urinalysis was normal. Urine drug screen was positive for cannabinoids. Ethyl alcohol was 46. Chest x-ray showed no acute cardiopulmonary findings. He was admitted into the hospital with severe dehydration with KAN for aggressive IV fluid hydration. CIWA was checked, Librium was scheduled and Ativan was ordered PRN. during the patient's hospitalization his creatinine normalized, urine cleared up, muscle aches and pains improved. He was able to eat and drink without any issues. We decrease his Librium to 25 mg q.6 hours. He had 4 doses of Librium 25 q.6 hours and his CIWA had been less than 3 until lunch today when the nurse said his CIWA was 10. She ended up giving him his Librium and IV Ativan. upon my evaluation of the patient at 3:00 p.m. he did not have any signs of withdrawal, very slight tremor to his bilateral hands. I discussed with the patient that due to his elevated CIWA score at lunch I would like to keep him overnight for further monitoring to prevent any withdrawal symptoms. The patient was very anxious to return home to his dog and states he would not have a ride any other time. The patient states he wants to be discharged home, he knows the risks of leaving the hospital and possibly undergoing some withdrawal symptoms. I am giving him Librium 25 mg to take tonight, tomorrow morning, tomorrow night and then denied after. The patient understands he needs to follow-up with [facility], which he has seen before. he needs to see a psychiatrist there. He needs the follow-up with [facility] And consider seeking more help for detox. He seems very motivated and driven to never drink alcohol again. Return to ER warnings given. He understands and agrees the plan. all questions answered. He was discharged on folic acid, thiamine. he did tell me he used to take Lexapro so I started him on 5 mg daily which I will continue for 30 days. Black box warning was given and explained to the patient of any suicidial ideation to seek help. He understands. He also told me he has high anxiety so I started buspirone 5 mg b.i.d.. Patient is a smoker but is not interested in quitting at this time. He wants to quit alcohol 1st. He was having a cough with a little sputum production so I gave him a Z-Jose for treatment of bronchitis. The patient was discharged in stable condition. (2) Dehydration: Code(s): E86.0 - Dehydration Status: Acute Assessment and Plan: Plan is as d
== END 2020-09-03 15:30 | disposition home or self-care (01) | DRG 469 ==
LOC: ANHED 18:39 → ANH3MEDSUR 19:07
PROVIDERS: Emergency Medicine; Emergency Medicine Emergency Medical Services; Physician Assistant; Admitting Provider Internal Medicine; Emergency Provider Emergency Medicine; Visit Provider Physician Assistant
DX: N17.9 Acute kidney failure, unspecified (principal); E86.0 Dehydration; R79.89 Other specified abnormal findings of blood chemistry; F10.10 Alcohol abuse, uncomplicated; F17.210 Nicotine dependence, cigarettes, uncomplicated; F31.9 Bipolar disorder, unspecified; F43.10 Post-traumatic stress disorder, unspecified; Z86.19 Personal history of other infectious and parasitic diseases
CPT/HCPCS: 36415; 71046; 80048; 80053; 80307; 81003; 82550; 82607; 82728; 82746; 83540; 83550; 83605; 83690; 83735; 84100; 84484; 85025; 85055; 85610; 85730; 93005; 96374; 99285; A9270; J2060; J2405; J3411; J3475; J7030; J7120

== ENCOUNTER 2020-09-30 17:30 | Inpatient (IN) | payer MEDICAID, SELFPAY ==
--- NOTE | ~2020-09-30 | XR_ITS ---
EXAMINATION: XR chest 1V portable DATE: 09/30/2020 22:01 INDICATION: Cough, cramping and dehydration. TECHNIQUE: frontal view of the chest was obtained. COMPARISON: Chest radiograph dated 09/01/2020 FINDINGS: The lungs remain clear with no focal airspace opacities, pulmonary edema, pleural effusion or pneumot horax. The cardiomediastinal silhouette is normal. Visualized bones and soft tissues are unremarkable . IMPRESSION: 1. No acute cardiopulmonary disease. Reviewed, dictated and finalized at location A.
--- NOTE | ~2020-09-30 | CT_ITS ---
EXAMINATION: CT abdomen pelvis wo con DATE: 09/30/2020 22:27 INDICATION: Abdominal pain and dehydration. TECHNIQUE: Computed tomography (CT) of the abdomen and pelvis was performed without intravenous contr ast. Automated exposure control and iterative reconstruction technique were employed. The dose-length product was 335.96 mGy-cm. COMPARISON: None FINDINGS: Lung bases are clear. Heart size is normal. No pericardial or pleural effusion. Subtle dependently la yering likely sludge in the otherwise normal-appearing gallbladder with no gallstones evident on rece nt prior ultrasound and with no wall thickening or pericholecystic inflammatory change to suggest acu te cholecystitis. Liver, spleen, pancreas and bilateral adrenal glands are normal. Kidneys and ureter s are normal with no urolithiasis, hydroureteronephrosis or perinephric/ureteral stranding. Nearly de compressed bladder is normal. Appendix is normal. No bowel obstruction. No free intraperitoneal gas o r fluid. No pathologically enlarged abdominal or pelvic lymphadenopathy. Mild lower lumbar spondylosi s. IMPRESSION: 1. No acute intra-abdominal/pelvic process. Reviewed, dictated and finalized at location A.
--- NOTE | ~2020-09-30 | US_ITS ---
EXAMINATION: US renal BI DATE: 10/01/2020 08:21 INDICATION: Renal failure. TECHNIQUE: Multiple ultrasound grayscale images of the kidneys were obtained. COMPARISON: CT abdomen and pelvis 09/30/2020 FINDINGS: The right kidney measures 10.7 x 5.2 x 4.6 cm. The left kidney measures 10.4 x 6.1 x 4.4 cm. The kidn eys demonstrate normal parenchymal echogenicity. There is no hydronephrosis. The bladder is not well distended. IMPRESSION: 1. Normal kidneys. No hydronephrosis. Reviewed, dictated and finalized at location A.
[2020-09-30 17:34] VITALS: BP 140/91; PULSE 133; RESP 18; TEMP 36; O2SAT 100
--- NOTE | 2020-09-30 17:42 | ECG_ITS ---
Measurements Intervals [place] Rate: 120 P: 70 [place]: 127 QRS: 14 QRSD: 106 T: 79 QT: 317 QTc: 449 Interpretive Statements SINUS TACHYCARDIA PEAKED T WAVES- CONSIDER HYPERKALEMIA OR ISCHEMIA BASELINE ARTIFACT- I, II, AVR, AVL, AVF, V1-V2, V4-V6 ABNORMAL ECG Electronically Signed On 09-30-2020 19:36:05 CDT by Lobito Salguero D.O.
[2020-09-30 18:03] LABS: Basophils Absolute Auto 0.2 K/mm3 (0.0-0.1); Basophils Percent Auto 0.7 % (0.2-1.2); Eosinophils Absolute Auto 0.1 K/mm3 (0-0.3); Eosinophils Percent Auto 0.6 % (0-4.4); Hematocrit 54.2 % (42.0-52.0); Hemoglobin 18.5 g/dL (14.0-18.0); Immature Granulocyte Absolute 0.29 K/mm3 (0.00-0.031); Immature Granulocyte Percent A 1.2 % (0-0.5); Lymphocytes Absolute Auto 3.46 K/mm3 (0.9-3.2); Lymphocytes Percent Auto 14.7 % (18.3-44.2); Mean Corpuscular HGB Conc 34.1 g/dl (32-36); Mean Corpuscular Hemoglobin 32.7 pg (26-34); Mean Corpuscular Volume 95.8 fl (80-100); Monocytes Absolute Auto 2.4 K/mm3 (0.1-0.6); Monocytes Percent Auto 10.1 % (2.6-8.5); Neutrophils Absolute Auto 17.2 K/mm3 (1.3-6.7); Neutrophils Percent Auto 72.7 % (45.5-73.1); Platelet Count Result 230 k/mm3 (150-375); Red Blood Count 5.66 M/mm3 (4.6-6.20); White Blood Count 23.6 K/mm3 (4.5-10.0)
[2020-09-30 18:20] LABS: Alanine Aminotransferase 105 U/L (4-50); Alkaline Phosphatase 204 U/L (38-126); Anion Gap 35 mmol/L (8-16); Aspartate Amino Transferase 142 U/L (17-59); Bilirubin,Total 1.1 mg/dL (0.2-1.3); Blood Urea Nitrogen 29 mg/dL (9-20); Calcium 12.3 mg/dL (8.4-10.2); Carbon Dioxide 7 mmol/L (22-30); Chloride 89 mmol/L (98-107); Creatine Kinase 601 U/L (55-170); Estimated CRCL calculation 26 ml/min; Estimated Glomerular Filt Rate 18; Glucose 127 mg/dL (65-110); Potassium 3.9 mmol/L (3.4-5.0); Sodium 131 mmol/L (137-145)
[2020-09-30 18:51] LABS: Albumin Level > 6.0 g/dL (3.5-5.1)
[2020-09-30 20:39] VITALS: BP 147/100; PULSE 122; RESP 25; O2SAT 96
[2020-09-30] MEDS: LORazepam INJ (*CRX) 2 MG/ML VIAL 0.5 MG IV PUSH (22:00)
[2020-09-30] MEDS: SODIUM CHLORIDE 0.9% IV 1,000 ML 999 ML IV CONT ×2 (22:00)
[2020-09-30 22:26] VITALS: BP 136/93; PULSE 103; O2SAT 98
--- NOTE | 2020-09-30 23:02 | ED.GENADULT ---
HPI - General Adult General Chief complaint: Unspecified Stated complaint: poss dehydration Time Seen by Provider: 09/30/20 21:41 History of Present Illness HPI narrative: Patient 40-year-old gentleman who presents the emergency department chief complaint of muscle cramps. Patient reports that he has had several episodes where he is gotten extremely dehydrated and developed rhabdomyolysis and acute kidney injury. Patient states that he has been at work outside working states he has been drinking plenty of fluids and has cut down his alcohol intake but today started having severe muscle cramps. The patient states this feels exactly like whenever he had his previous episodes. Patient reports he has abdominal discomfort with this denies fever denies vomiting. Related Data Allergies Allergy/AdvReac Type Severity Reaction Status Date / Time No Known Allergies Allergy Mild Verified 09/30/20 20:46 Review of Systems Review of Systems: A 10 system review of systems was completed on the patient and is negative except for what is stated in the HPI. Nursing and ancillary documentation was reviewed. [facility] Past Medical History Medical History Alcohol abuse Anxiety Bipolar disorder Depression Hepatitis C Treated many years ago when he lived in [place]. Nicotine dependence Posttraumatic stress disorder Surgical History Surgical History No history of previous surgery Family History Family History Father Diabetes mellitus Social History Social History Social History: The patient lives in [place] with his dog. 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 Occasional marijuana use. He has had problems with alcohol for quite some time and was sober for nearly 5 years but began drinking again about 4 years ago. he typically drinks 4 to 5 shots of fireball in night as well as to tall boys and 1 pt of vodka. About 4 months ago he was drinking 2 pt of vodka but has cut back. He designates his friend, Mason Mac, as his surrogate decision maker. Code status: Full code. Exam Narrative: GENERAL: Well-appearing, well-nourished, and in no acute distress. HEAD: Normocephalic, atraumatic. EYES: PERRLA and EOMI. ENT: Nares clear, no rhinorrhea or epistaxis. Mucous membranes moist. NECK: Supple. CHEST: Clear to auscultation. No respiratory distress. HEART: Regular rate and rhythm. No murmur heard. Normal peripheral pulses. ABDOMEN: Soft, nontender, nondistended, normal active bowel sounds. EXTREMITIES: Normal range of motion. No edema. SKIN: Warm, dry, no rash. NEURO: No focal deficits. Alert and oriented x3. PSYCH: Normal mood and affect. Course Vital Signs Vital signs: Vital Signs Temperature 36.0 C L 09/30/20 17:34 Pulse Rate 133 H 09/30/20 17:34 Respiratory Rate 18 09/30/20 17:34 Blood Pressure 140/91 H 09/30/20 17:34 Pulse Oximetry 100 09/30/20 17:34 Temperature 36.0 C L 09/30/20 17:34 Pulse Rate 103 H 09/30/20 22:26 Respiratory Rate 25 H 09/30/20 20:39 Blood Pressure 136/93 H 09/30/20 22:26 Pulse Oximetry 98 09/30/20 22:26 Medical Decision Making Vital Signs Vital Signs: Vital Signs Temperature 36.0 C L 09/30/20 17:34 Pulse Rate 133 H 09/30/20 17:34 Respiratory Rate 18 09/30/20 17:34 Blood Pressure 140/91 H 09/30/20 17:34 Pulse Oximetry 100 09/30/20 17:34 Temperature 36.0 C L 09/30/20 17:34 Pulse Rate 103 H 09/30/20 22:26 Respiratory Rate 25 H 09/30/20 20:39 Blood Pressure 136/93 H 09/30/20 22:26 Pulse Oximetry 98 09/30/20 22:26 Lab Data Result diagrams: 09/30/20 17:42 09/30/20 17:42 Labs: Lab Results 09/30/20 09/30/20 Range/Units 17:4
[2020-10-01] VITALS (8 sets, daily range): BP systolic 119–133; BP diastolic 55–79; PULSE 60–98; RESP 16–20; TEMP 36.4–37.3; O2SAT 97–99; BMI 22.1
[2020-10-01 00:06] LABS: Add Urine Microscopic? YES; Appearance Urine Turbid (Clear); Bilirubin Urine 1+ (Negative); Blood Urine 2+ (Negative); Color Urine Amber (Yellow); Glucose Urine UA Negative (Negative); Ketones Urine Negative (Negative); Leukocyte Esterase Ur Trace LEU/UL (Negative); Mucus Urine Heavy /lpf; Nitrate Urine Negative (Negative); Protein Urine 3+ mg/dL (Negative); Specific Grav Ur 1.023 (1.001-1.035); Squamous Epithelial Cell Urine Occasional /hpf (Few)
--- NOTE | 2020-10-01 01:38 | ADMGEN ---
This patient, Lm Kline, was admitted to [facility] Surg Room 325-02. Patient/family oriented to hospital policies and general routines including ID bracelet, bed and alarms, visiting hours, pain management, procedures, bathroom and other care routines, personal items, smoking policy, room service/diet, and visiting hours. Information on how to activate the Rapid Response Team has been discussed. Patient/Family are encouraged to report perceived risks to care and to ask questions if they do not understand what they are told or what they should do.
--- NOTE | 2020-10-01 02:15 | PM.IMHP ---
H&P: HPI History of Present Illness Date/Time: 10/01/20 02:15 Chief Complaint: Generalized pain/cramps Narrative: Patient 40-year-old gentleman who presents the emergency department chief complaint of generalized body aches and cramps. He notes tasted since he got out of work yesterday afternoon. He states he has been drinking plenty of fluids and has been cutting down his alcohol intake however he does drink every night few shots for him to be able to sleep. He started having profuse sweating followed by muscle cramps in generalized pain all over his body and hence came to the ER for evaluation he reports no fever chills denies any vomiting he does report nausea and 1 episode of loose stool yesterday morning. He was noted to be an KAN with rhabdomyolysis and is admitted for further evaluation and management He has recurrent episode of similar episode in the past. Review of Systems Review of Systems: - CONSTITUTIONAL: Denies weight loss, fever and chills. - HEENT: Denies changes in vision and hearing - RESPIRATORY: Denies SOB and cough. - CV: Denies palpitations and CP. - GI: Reports abdominal pain, nausea, denies vomiting and diarrhea. - : Denies dysuria and urinary frequency. - MSK: Reports myalgia and joint pain. - SKIN: Denies rash and pruritus. - NEUROLOGICAL: Denies headache and syncope. - PSYCHIATRIC: Denies recent changes in mood. Denies anxiety and depression. All systems reviewed & are unremarkable except as noted in HPI and below Constitutional: Constitutional: Reports fatigue and Reports weakness Neurologic: Reports weakness Endocrine: Endocrine: Reports fatigue PMFSH Past Medical History Medical History Alcohol abuse Anxiety Bipolar disorder Depression Hepatitis C Treated many years ago when he lived in [place]. Nicotine dependence Posttraumatic stress disorder Surgical History Surgical History No history of previous surgery Family History Family History Father Diabetes mellitus Social History Social History Social History: The patient lives in [place] with his dog. 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 Occasional marijuana use. He has had problems with alcohol for quite some time and was sober for nearly 5 years but began drinking again about 4 years ago. he typically drinks 4 to 5 shots of fireball in night as well as to tall boys and 1 pt of vodka. About 4 months ago he was drinking 2 pt of vodka but has cut back. He designates his friend, Mason Mac, as his surrogate decision maker. Code status: Full code. Meds Home Medications and Allergies Home Medications Medication Instructions Recorded Confirmed Type buspirone 5 mg PO BID #60 tablet 09/03/20 Rx escitalopram oxalate 5 mg PO DAILY #30 tablet 09/03/20 Rx folic acid 1 mg PO DAILY #30 tablet 09/03/20 Rx thiamine HCl (vitamin B1) [Vitamin 100 mg PO QAM #30 tablet 09/03/20 Rx B-1] Allergies Allergy/AdvReac Type Severity Reaction Status Date / Time No Known Allergies Allergy Mild Verified 09/30/20 20:46 Vital Signs Vital Signs - 24 hr 09/30/20 17:34 09/30/20 20:39 09/30/20 22:26 Temperature 96.8 F L Pulse Rate 133 H 122 H 103 H Respiratory Rate 18 25 H Blood Pressure 140/91 H 147/100 H 136/93 H Pulse Oximetry 100 96 98 10/01/20 01:05 Temperature 98.7 F Pulse Rate 94 Respiratory Rate 18 Blood Pressure 133/79 Pulse Oximetry 97 Exam Narrative: GENERAL: The patient is well developed, in mild distress HEENT: Nonicteric sclerae, PERRLA, EOMI. Oropharynx clear. Moist mucous membranes. Conjunctivae appear well perfused. CHEST: Chest wall is nontender. HEART: Regular rate and rhythm without murmur, rub
[2020-10-01] MEDS: SODIUM CHLORIDE 0.9% IV 1,000 ML 150 ML IV CONT ×3 (02:48→18:10)
[2020-10-01] MEDS: chlordiazePOXIDE (*CRX) 25 MG CAPSULE PO (06:23)
[2020-10-01] MEDS: HEPARIN SODIUM 5,000 UNITS/ML VIAL 5000 UNITS SUB-Q ×3 (06:24→22:25)
[2020-10-01 06:26] LABS: Basophils Absolute Auto 0.1 K/mm3 (0.0-0.1); Basophils Percent Auto 0.7 % (0.2-1.2); Eosinophils Absolute Auto 0.2 K/mm3 (0-0.3); Eosinophils Percent Auto 1.3 % (0-4.4); Hematocrit 43.8 % (42.0-52.0); Hemoglobin 15.3 g/dL (14.0-18.0); Immature Granulocyte Absolute 0.09 K/mm3 (0.00-0.031); Immature Granulocyte Percent A 0.6 % (0-0.5); Lymphocytes Absolute Auto 2.25 K/mm3 (0.9-3.2); Lymphocytes Percent Auto 14.9 % (18.3-44.2); Mean Corpuscular HGB Conc 34.9 g/dl (32-36); Mean Corpuscular Hemoglobin 33.1 pg (26-34); Mean Corpuscular Volume 94.8 fl (80-100); Monocytes Absolute Auto 1.6 K/mm3 (0.1-0.6); Monocytes Percent Auto 10.9 % (2.6-8.5); Neutrophils Absolute Auto 10.8 K/mm3 (1.3-6.7); Neutrophils Percent Auto 71.6 % (45.5-73.1); Platelet Count Result 147 k/mm3 (150-375); Red Blood Count 4.62 M/mm3 (4.6-6.20); Red Cell Distribution Width 12.8 % (11.5-14.5); White Blood Count 15.1 K/mm3 (4.5-10.0)
[2020-10-01 07:54] LABS: Anion Gap 16 mmol/L (8-16); Blood Urea Nitrogen 34 mg/dL (9-20); Calcium 9.5 mg/dL (8.4-10.2); Carbon Dioxide 19 mmol/L (22-30); Chloride 96 mmol/L (98-107); Estimated CRCL calculation 43 ml/min; Estimated Glomerular Filt Rate 33; Glucose 91 mg/dL (65-110); Potassium 3.8 mmol/L (3.4-5.0); Sodium 131 mmol/L (137-145)
[2020-10-01] MEDS: ESCITALOPRAM OXALATE 5 MG TABLET PO (08:56)
[2020-10-01] MEDS: FOLIC ACID 1 MG TABLET PO (08:56)
[2020-10-01] MEDS: busPIRone HCL 5 MG TABLET PO ×2 (08:56→16:19)
[2020-10-01] MEDS: THIAMINE HCL 100 MG TABLET PO (08:56)
[2020-10-01 09:42] LABS: Creatinine Urine 54.4 mg/dL
[2020-10-01 09:48] LABS: Erythrocyte Sedimentation Rate 6 mm/hr (0-20)
[2020-10-01 09:54] LABS: Eosinophil Urine None Seen % (None Seen); Sodium Urine Random < 5 meq/L
[2020-10-01 10:31] LABS: Alveolar/Arterial O2 Gradient 21.3 mmHg; Base Excess ABG -0.9 mEq/l (+/-2.0); Fractional Inspired Oxygen 21 %; HCO3 ABG 21.6 mEq/l (22.0-26.0); Oxygen Content ABG 21.3 %vol (16.0-22.0); Oxygen Saturation ABG 97.5 % (95.0-100.0); Oxyhemoglobin 96.2 % THb (90.0-100.0); PCO2 ABG 30.3 mmHg (35.0-45.0); PO2 ABG 92.1 mmHg (80.0-100.0); PO2 FiO2 Ratio Arterial Blood 4.39 %; Total Hemoglobin 15.7 g/dL (12.0-18.0)
[2020-10-01 10:32] LABS: Device ROOM AIR; Modified Allen's Test Pass; Site Drawn LEFT RADIAL
[2020-10-01 11:38] LABS: Salicylate < 1.0 mg/dL (2-20)
[2020-10-01 11:39] LABS: Acetaminophen < 10 ug/mL (10-30)
[2020-10-01 11:41] LABS: CRP 0.8 mg/dL (<1.0)
[2020-10-01 11:58] LABS: Lactic Acid Reflex 0.7 mmol/L (0.7-2.1)
[2020-10-01 11:59] LABS: Magnesium 2.6 mg/dL (1.6-2.3); Phosphorus 3.7 mg/dL (2.5-4.5)
[2020-10-01 12:00] LABS: Iron 220 ug/dL (49-181)
[2020-10-01 12:09] LABS: Percent Iron Saturation 51 % (20-50)
[2020-10-01 12:11] LABS: Hepatitis B Surface Antigen Negative (Negative); Troponin I < 0.012 ng/mL (0.000-0.034)
[2020-10-01 12:16] LABS: HAV RESULT Negative (Negative)
[2020-10-01 12:41] LABS: Erythrocyte Sedimentation Rate 13 mm/hr (0-20)
[2020-10-01 13:23] LABS: Folic Acid > 20.0 ng/mL (2.76->20); Hepatitis C Virus Antibody Reactive (Negative)
[2020-10-01] MEDS: chlordiazePOXIDE (*CRX) 25 MG CAPSULE 50 MG PO ×2 (16:16→23:18)
--- NOTE | 2020-10-01 19:09 | PM.IMPN ---
Progress Note: A&P Assessment and Plan (1) Alcohol withdrawal: Qualifiers: Complication of substance-induced condition: uncomplicated Qualified Code(s): F10.230 - Alcohol dependence with withdrawal, uncomplicated Code(s): F10.239 - Alcohol dependence with withdrawal, unspecified Status: Acute (2) Rhabdomyolysis: Qualifiers: Rhabdomyolysis type: non-traumatic Qualified Code(s): M62.82 - Rhabdomyolysis Code(s): M62.82 - Rhabdomyolysis Status: Acute (3) Nicotine dependence: Qualifiers: Nicotine product type: cigarettes Substance use status: in withdrawal Qualified Code(s): F17.213 - Nicotine dependence, cigarettes, with withdrawal Code(s): F17.200 - Nicotine dependence, unspecified, uncomplicated Status: Acute (4) Elevated LFTs: Code(s): R79.89 - Other specified abnormal findings of blood chemistry Status: Acute (5) Dehydration: Code(s): E86.0 - Dehydration Status: Acute (6) Acute renal failure: Qualifiers: Acute renal failure type: unspecified Qualified Code(s): N17.9 - Acute kidney failure, unspecified Code(s): N17.9 - Acute kidney failure, unspecified Status: Acute (7) Alcohol abuse: Code(s): F10.10 - Alcohol abuse, uncomplicated Status: Acute (8) Transaminitis: Code(s): R74.01 - Elevation of levels of liver transaminase levels Status: Acute (9) Hyponatremia: Code(s): E87.1 - Hypo-osmolality and hyponatremia Status: Acute (10) Abnormal urinalysis: Code(s): R82.90 - Unspecified abnormal findings in urine Status: Acute (11) High anion gap metabolic acidosis: Code(s): E87.2 - Acidosis Status: Acute (12) 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 consider Nephrology consultation Alcohol withdrawal: Librium taper started P.r.n. Ativan Abnormal urinalysis: Urinalysis concerning for infection however patient denies any current symptoms at this time; hold off on antibiotics Leukocytosis: Possibly reactive Continue monitoring off antibiotics Blood cultures have been sent Rhabdomyolysis: Although CK levels are not elevated significantly, patient does have significant muscle aches This could be secondary to dehydration Urine drug screen is positive for cannabinoid use Subjective Date/time seen: 10/01/20 19:09 40-year-old male who presented with complaints of generalized body aches and cramps. He was noted to be severely dehydrated with elevated creatinine levels and is now being hydrated with IV fluids. If his lab values continued to improve he should be able to be discharged in the a.m.. Review of Systems Review of Systems: A temper review of system was conducted which was otherwise negative Exam Narrative: GENERAL: The patient is well developed, in mild distress HEENT: Nonicteric sclerae, PERRLA, EOMI. Oropharynx clear. Moist mucous membranes. Conjunctivae appear well perfused. CHEST: Chest wall is nontender. HEART: Regular rate and rhythm without murmur, rubs, or gallops LUNGS: Clear to auscultation bilaterally. no respiratory distress ABDOMEN: Soft, positive bowel sounds, non-tender, no organomegaly. SKIN: No rash, no excessive bruising, petechiae, or purpura. NEUROLOGIC: Cranial nerves II-XII intact, alert and oriented x 3, no gross motor deficits EXTREMITIES: no edema, cyanosis or clubbing Objective Data Vital Signs Vital Signs: Vital Signs - 24 hr 09/30/20 20:39 09/30/20 22:26 10/01/20 01:05 Temperature 98.7 F Pulse Rate 122 H 103 H 94 Pulse Rate [Right Radial] Respiratory Rate 25 H 18 Blood Pressure 147/100 H 136/93 H 133/79 Pulse Oximetry 96 98 97 10/01/20 02:25 10/01/20 05:40 10/01/20 08:0
[2020-10-01 19:52] LABS: Creatine Kinase 1369 U/L (55-170)
[2020-10-01] MEDS: LORazepam INJ (*CRX) 2 MG/ML VIAL 0.5 MG IV PUSH (20:40)
[2020-10-01] MEDS: NICOTINE (*PBKC) 14 MG PATCH 1 PATCH TRANSDERM (22:26)
[2020-10-02] VITALS: BP 116/57; PULSE 64; PULSE 99; RESP 16; TEMP 36.8; O2SAT 99
[2020-10-02] MEDS: SODIUM CHLORIDE 0.9% IV 1,000 ML 150 ML IV CONT ×3 (03:00→17:28)
[2020-10-02 04:00] VITALS: BP 112/51; PULSE 71; RESP 16; TEMP 36.6; O2SAT 100
[2020-10-02] MEDS: chlordiazePOXIDE (*CRX) 25 MG CAPSULE 50 MG PO ×3 (05:26→21:14)
[2020-10-02] MEDS: HEPARIN SODIUM 5,000 UNITS/ML VIAL 5000 UNITS SUB-Q ×3 (05:27→21:14)
[2020-10-02 07:40] LABS: Basophils Absolute Auto 0.1 K/mm3 (0.0-0.1); Basophils Percent Auto 1.1 % (0.2-1.2); Eosinophils Absolute Auto 0.2 K/mm3 (0-0.3); Eosinophils Percent Auto 2.4 % (0-4.4); Hematocrit 38.7 % (42.0-52.0); Hemoglobin 12.9 g/dL (14.0-18.0); Immature Granulocyte Absolute 0.03 K/mm3 (0.00-0.031); Immature Granulocyte Percent A 0.5 % (0-0.5); Lymphocytes Absolute Auto 1.69 K/mm3 (0.9-3.2); Lymphocytes Percent Auto 26.7 % (18.3-44.2); Mean Corpuscular HGB Conc 33.3 g/dl (32-36); Mean Corpuscular Hemoglobin 33.2 pg (26-34); Mean Corpuscular Volume 99.7 fl (80-100); Mean Platelet Volume 11.9 fl (7.4-10.4); Monocytes Absolute Auto 0.9 K/mm3 (0.1-0.6); Monocytes Percent Auto 13.9 % (2.6-8.5); Neutrophils Absolute Auto 3.5 K/mm3 (1.3-6.7); Neutrophils Percent Auto 55.4 % (45.5-73.1); Platelet Count Result 109 k/mm3 (150-375); Red Blood Count 3.88 M/mm3 (4.6-6.20); Red Cell Distribution Width 13.2 % (11.5-14.5); White Blood Count 6.3 K/mm3 (4.5-10.0)
[2020-10-02] MEDS: THIAMINE HCL 100 MG TABLET PO (08:26)
[2020-10-02] MEDS: busPIRone HCL 5 MG TABLET PO ×2 (08:26→17:19)
[2020-10-02] MEDS: FOLIC ACID 1 MG TABLET PO (08:26)
[2020-10-02] MEDS: ESCITALOPRAM OXALATE 5 MG TABLET PO (08:26)
[2020-10-02 08:28] LABS: Alanine Aminotransferase 84 U/L (4-50); Albumin Level 3.9 g/dL (3.5-5.1); Alkaline Phosphatase 108 U/L (38-126); Anion Gap 6 mmol/L (8-16); Aspartate Amino Transferase 161 U/L (17-59); Bilirubin,Total 0.6 mg/dL (0.2-1.3); Blood Urea Nitrogen 18 mg/dL (9-20); Calcium 8.9 mg/dL (8.4-10.2); Carbon Dioxide 21 mmol/L (22-30); Chloride 107 mmol/L (98-107); Estimated CRCL calculation 113 ml/min; Estimated Glomerular Filt Rate > 60; Glucose 83 mg/dL (65-110); Potassium 4.2 mmol/L (3.4-5.0); Sodium 134 mmol/L (137-145)
[2020-10-02 09:20] LABS: Creatine Kinase 1099 U/L (55-170)
[2020-10-02] MEDS: ACETAMINOPHEN 325 MG TABLET 650 MG PO (13:41)
[2020-10-02 14:00] VITALS: BP 111/51; PULSE 54; RESP 16; TEMP 36.4; O2SAT 99
[2020-10-02] MEDS: LORazepam INJ (*CRX) 2 MG/ML VIAL 0.5 MG IV PUSH (17:24)
--- NOTE | 2020-10-02 18:59 | PM.IMPN ---
Progress Note: A&P Assessment and Plan (1) Alcohol withdrawal: Qualifiers: Complication of substance-induced condition: uncomplicated Qualified Code(s): F10.230 - Alcohol dependence with withdrawal, uncomplicated Code(s): F10.239 - Alcohol dependence with withdrawal, unspecified Status: Acute (2) Rhabdomyolysis: Qualifiers: Rhabdomyolysis type: non-traumatic Qualified Code(s): M62.82 - Rhabdomyolysis Code(s): M62.82 - Rhabdomyolysis Status: Acute (3) Nicotine dependence: Qualifiers: Nicotine product type: cigarettes Substance use status: in withdrawal Qualified Code(s): F17.213 - Nicotine dependence, cigarettes, with withdrawal Code(s): F17.200 - Nicotine dependence, unspecified, uncomplicated Status: Acute (4) Elevated LFTs: Code(s): R79.89 - Other specified abnormal findings of blood chemistry Status: Acute (5) Dehydration: Code(s): E86.0 - Dehydration Status: Acute (6) Acute renal failure: Qualifiers: Acute renal failure type: unspecified Qualified Code(s): N17.9 - Acute kidney failure, unspecified Code(s): N17.9 - Acute kidney failure, unspecified Status: Acute (7) Alcohol abuse: Code(s): F10.10 - Alcohol abuse, uncomplicated Status: Acute (8) Transaminitis: Code(s): R74.01 - Elevation of levels of liver transaminase levels Status: Acute (9) Hyponatremia: Code(s): E87.1 - Hypo-osmolality and hyponatremia Status: Acute (10) Abnormal urinalysis: Code(s): R82.90 - Unspecified abnormal findings in urine Status: Acute (11) High anion gap metabolic acidosis: Code(s): E87.2 - Acidosis Status: Acute (12) Synthetic cannabinoid dependence: Code(s): 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 Ativan No signs of DT at this point, however patient is still in window for severe withdrawal symptoms Abnormal urinalysis: Urinalysis concerning for infection however patient denies any current symptoms at this time; hold off on antibiotics Leukocytosis: Possibly reactive Continue monitoring off antibiotics Blood cultures have been sent follow-up final reading Rhabdomyolysis: Although CK levels are not elevated significantly, patient does have significant muscle aches This could be secondary to dehydration Urine drug screen is positive for cannabinoid use Subjective Date/time seen: 10/02/20 18:59 Interval history: Mild aching in extremities, however mentation at baseline, patient able to walk up and down the [place] without any problems Review of Systems Review of Systems: All systems reviewed & are unremarkable except as noted in HPI and below Constitutional: Constitutional: Reports fatigue and Reports weakness Neurologic: Reports weakness Endocrine: Endocrine: Reports fatigue Exam Narrative: GENERAL: The patient is well developed, in mild distress HEENT: Nonicteric sclerae, PERRLA, EOMI. Oropharynx clear. Moist mucous membranes. Conjunctivae appear well perfused. CHEST: Chest wall is nontender. HEART: Regular rate and rhythm without murmur, rubs, or gallops LUNGS: Clear to auscultation bilaterally. no respiratory distress ABDOMEN: Soft, positive bowel sounds, non-tender, no organomegaly. SKIN: No rash, no excessive bruising, petechiae, or purpura. NEUROLOGIC: Cranial nerves II-XII intact, alert and oriented x 3, no gross motor deficits EXTREMITIES: no edema, cyanosis or clubbing Extrem: General: normal exam except as noted and no edema Objective Data Vital Signs Vital Signs: Vital Signs - 24 hr 10/01/20 20:00 10/02/20 00:00 10/02/20 04:00 Temperature 99.1 F 98.3 F 97.9 F Pulse Rate 60 64 71 Pulse Rate [Right Radial] 99 71 Respiratory Rate 16 16 16 Blood Pressure 123/55 L
[2020-10-02 21:15] VITALS: BP 109/64; PULSE 54; RESP 20; TEMP 36.1; O2SAT 95
[2020-10-03] VITALS: PULSE 74
[2020-10-03] MEDS: LORazepam INJ (*CRX) 2 MG/ML VIAL 0.5 MG IV PUSH ×2 (00:21→09:19)
[2020-10-03] MEDS: ACETAMINOPHEN 325 MG TABLET 650 MG PO (00:22)
[2020-10-03] MEDS: SODIUM CHLORIDE 0.9% IV 1,000 ML 150 ML IV CONT ×2 (01:13→06:44)
[2020-10-03 04:00] VITALS: PULSE 80
[2020-10-03 04:29] VITALS: BP 127/63; PULSE 76; RESP 22; TEMP 36; O2SAT 94
[2020-10-03] MEDS: chlordiazePOXIDE (*CRX) 25 MG CAPSULE 50 MG PO ×2 (06:43→14:09)
[2020-10-03] MEDS: HEPARIN SODIUM 5,000 UNITS/ML VIAL 5000 UNITS SUB-Q (06:45)
[2020-10-03 07:21] LABS: Basophils Absolute Auto 0.1 K/mm3 (0.0-0.1); Basophils Percent Auto 0.9 % (0.2-1.2); Eosinophils Absolute Auto 0.2 K/mm3 (0-0.3); Eosinophils Percent Auto 3.5 % (0-4.4); Hematocrit 39.9 % (42.0-52.0); Hemoglobin 12.7 g/dL (14.0-18.0); Immature Granulocyte Absolute 0.02 K/mm3 (0.00-0.031); Immature Granulocyte Percent A 0.3 % (0-0.5); Immature Platelet Fraction Pct 9.9 % (0.9-11.2); Lymphocytes Absolute Auto 1.78 K/mm3 (0.9-3.2); Mean Corpuscular HGB Conc 31.8 g/dl (32-36); Mean Corpuscular Volume 103.6 fl (80-100); Mean Platelet Volume 12.1 fl (7.4-10.4); Monocytes Absolute Auto 0.7 K/mm3 (0.1-0.6); Monocytes Percent Auto 11.2 % (2.6-8.5); Neutrophils Absolute Auto 3.6 K/mm3 (1.3-6.7); Neutrophils Percent Auto 56.1 % (45.5-73.1); Platelet Count Result 113 k/mm3 (150-375); Red Blood Count 3.85 M/mm3 (4.6-6.20); Red Cell Distribution Width 13.1 % (11.5-14.5); White Blood Count 6.4 K/mm3 (4.5-10.0)
[2020-10-03 07:46] LABS: Alanine Aminotransferase 95 U/L (4-50); Albumin Level 3.8 g/dL (3.5-5.1); Alkaline Phosphatase 102 U/L (38-126); Anion Gap 4 mmol/L (8-16); Aspartate Amino Transferase 138 U/L (17-59); Bilirubin,Total 0.6 mg/dL (0.2-1.3); Blood Urea Nitrogen 12 mg/dL (9-20); Calcium 9.1 mg/dL (8.4-10.2); Carbon Dioxide 19 mmol/L (22-30); Chloride 112 mmol/L (98-107); Estimated CRCL calculation 113 ml/min; Estimated Glomerular Filt Rate > 60; Glucose 85 mg/dL (65-110); Phosphorus 2.7 mg/dL (2.5-4.5); Potassium 4.1 mmol/L (3.4-5.0); Sodium 135 mmol/L (137-145)
[2020-10-03 08:00] LABS: Magnesium 1.9 mg/dL (1.6-2.3)
[2020-10-03] MEDS: THIAMINE HCL 100 MG TABLET PO (09:10)
[2020-10-03] MEDS: FOLIC ACID 1 MG TABLET PO (09:11)
[2020-10-03] MEDS: ESCITALOPRAM OXALATE 5 MG TABLET PO (09:11)
[2020-10-03] MEDS: busPIRone HCL 5 MG TABLET PO (09:11)
[2020-10-03] MEDS: NICOTINE (*PBKC) 14 MG PATCH 1 PATCH TRANSDERM (09:12)
--- NOTE | 2020-10-03 12:41 | PM.DS ---
DS: Admitting Diagnosis Admitting Diagnosis Generalized pain DS: Discharge Diagnosis Discharge Diagnosis (1) Alcohol withdrawal: Qualifiers: Complication of substance-induced condition: uncomplicated Qualified Code(s): F10.230 - Alcohol dependence with withdrawal, uncomplicated Code(s): F10.239 - Alcohol dependence with withdrawal, unspecified Status: Acute (2) Rhabdomyolysis: Qualifiers: Rhabdomyolysis type: non-traumatic Qualified Code(s): M62.82 - Rhabdomyolysis Code(s): M62.82 - Rhabdomyolysis Status: Acute (3) Nicotine dependence: Qualifiers: Nicotine product type: cigarettes Substance use status: in withdrawal Qualified Code(s): F17.213 - Nicotine dependence, cigarettes, with withdrawal Code(s): F17.200 - Nicotine dependence, unspecified, uncomplicated Status: Acute (4) Elevated LFTs: Code(s): R79.89 - Other specified abnormal findings of blood chemistry Status: Acute (5) Dehydration: Code(s): E86.0 - Dehydration Status: Acute (6) Acute renal failure: Qualifiers: Acute renal failure type: unspecified Qualified Code(s): N17.9 - Acute kidney failure, unspecified Code(s): N17.9 - Acute kidney failure, unspecified Status: Acute (7) Alcohol abuse: Code(s): F10.10 - Alcohol abuse, uncomplicated Status: Acute (8) Transaminitis: Code(s): R74.01 - Elevation of levels of liver transaminase levels Status: Acute (9) Hyponatremia: Code(s): E87.1 - Hypo-osmolality and hyponatremia Status: Acute (10) Abnormal urinalysis: Code(s): R82.90 - Unspecified abnormal findings in urine Status: Acute (11) High anion gap metabolic acidosis: Code(s): E87.2 - Acidosis Status: Acute (12) Synthetic cannabinoid dependence: Code(s): F19.20 - Other psychoactive substance dependence, uncomplicated Status: Acute DS: Summary Hospital Course Reason for hospitalization: Generalized pain Hospital Course: 40-year-old male with history of chronic alcoholism presenting with generalized body aches on September 30. History of heavy alcohol consumption, and repeated episodes of generalized body pain, presumed in past to be due to rhabdomyolysis. Patient has also been on antidepressants in the past, however has not filled because of job difficulties. Treated for rhabdomyolysis with vitamin supplementation and fluids, KAN resolves with fluids. And on discharge, KAN has resolved and symptoms are back to baseline. The patient feels comfortable going home, and interested in outpatient rehab for alcoholism. Will refill on buspirone Lexapro folate and thiamine on discharge. Close follow-up with primary care Status at Discharge Functional status at discharge: uses cane/walker Time Spent with Patient Time attestation: Total time spent providing and/or coordinating discharge services: Time spent: Less than 30 minutes Exam Narrative: GENERAL: The patient is well developed, in mild distress HEENT: Nonicteric sclerae, PERRLA, EOMI. Oropharynx clear. Moist mucous membranes. Conjunctivae appear well perfused. CHEST: Chest wall is nontender. HEART: Regular rate and rhythm without murmur, rubs, or gallops LUNGS: Clear to auscultation bilaterally. no respiratory distress ABDOMEN: Soft, positive bowel sounds, non-tender, no organomegaly. SKIN: No rash, no excessive bruising, petechiae, or purpura. NEUROLOGIC: Cranial nerves II-XII intact, alert and oriented x 3, no gross motor deficits EXTREMITIES: no edema, cyanosis or clubbing Extrem: General: normal exam except as noted and no edema DS: Data Data Completed and Pending Labs on day of discharge: Labs from last 24 hours 10/03/20 10/03/20 07:00 07:00 WBC 6.4 RBC 3.85 L Hgb 12.7 L Hct 39.9 L MCV 103.6 H MCH 33.0 MCHC 31.8 L RDW 13.1 Plt Count 113 L MPV 12.1 H Immature Gran % (Au
[2020-10-03 14:00] VITALS: BP 116/67; PULSE 64; RESP 18; TEMP 36.3; O2SAT 100
[2020-10-05 01:19] LABS: Albumin 4.7 g/dL (3.8-4.8); Alpha 1 Globulin 0.3 g/dL (0.2-0.3); Alpha 2 Globulin 0.7 g/dL (0.5-0.9); Beta 1 Globulin 0.6 g/dL (0.4-0.6); Gamma Globulin 1.2 g/dL (0.8-1.7)
[2020-10-07 05:04] LABS: Creatinine, Random Urine 49 mg/dL (20-320); Total Protein/Creatinine Ratio 286 mg/g creat (22-128)
[2020-10-07 18:54] LABS: Cryoglobulin, QL Negative (Negative)
== END 2020-10-03 14:15 | disposition home or self-care (01) | DRG 775 ==
LOC: ANHED 23:05 → ANH3MEDSUR 10-01 12:18
PROVIDERS: Emergency Medicine; Internal Medicine; Admitting Provider Internal Medicine; Emergency Provider Emergency Medicine; Visit Provider Internal Medicine
DX: F10.230 Alcohol dependence with withdrawal, uncomplicated (principal); N17.9 Acute kidney failure, unspecified; E86.0 Dehydration; M62.82 Rhabdomyolysis; E87.1 Hypo-osmolality and hyponatremia; E87.2 Acidosis; F31.9 Bipolar disorder, unspecified; F41.9 Anxiety disorder, unspecified; Z86.19 Personal history of other infectious and parasitic diseases; Z87.891 Personal history of nicotine dependence
CPT/HCPCS: 36415; 36600; 71045; 74176; 76775; 80048; 80053; 80307; 81001; 82533; 82550; 82570; 82595; 82607; 82728; 82746; 82805; 83540; 83550; 83605; 83735; 84100; 84145; 84155; 84156; 84165; 84166; 84300; 84443; 84484; 85025; 85055; 85652; 85999; 86038; 86140; 86334; 86709; 86803; 87040; 87086; 87340; 87522; 93005; 96361; 96374; 99285; A9270; J1644; J2060; J7030

== ENCOUNTER 2021-02-18 13:34 | Observation (INO) | payer BC, SELFPAY ==
[2021-02-18 13:41] VITALS: BP 160/77; PULSE 80; RESP 14; TEMP 36.4; O2SAT 100
--- NOTE | 2021-02-18 14:03 | ED.GENADULT ---
HPI - General Adult General Chief complaint: Unspecified Stated complaint: muscles spasms Time Seen by Provider: 02/18/21 13:46 Source: patient Limitations: no limitations History of Present Illness HPI narrative: Patient dropped off to the emergency room by a friend, complaining of painful spasms all over his body mainly face, right side started 1 to 2-hour prior to arrival to the emergency room. Patient denies having similar symptoms, fever, chills, nausea, vomiting, diarrhea, constipation, chest pain, shortness of breath, headache. Patient drinks daily, had a lot of alcohol last night. Patient denies any drug use except for marijuana patient lives alone. Been vaccinated for COVID. Related Data Allergies Allergy/AdvReac Type Severity Reaction Status Date / Time No Known Allergies Allergy Mild Verified 09/30/20 20:46 Review of Systems Review of Systems: CONSTITUTIONAL: Denies fever, chills, or sweats. EYES: Denies visual changes, redness, or discharge. ENT: Denies rhinorrhea, congestion, sore throat, or otalgia. CARDIOVASCULAR: Denies chest pain, palpitations, or edema. RESPIRATORY: Denies cough or dyspnea. GASTROINTESTINAL: Denies abdominal pain, nausea, vomiting, or diarrhea. GENITOURINARY: Denies dysuria or hematuria. SKIN: Denies rash or itching. MUSCULOSKELETAL: Denies back pain, joint pain, or myalgia. NEUROLOGIC: Denies headache, numbness, or weakness. PSYCHIATRIC: Denies anxiety or depression. [facility] Past Medical History Medical History Alcohol abuse Anxiety Bipolar disorder Depression Hepatitis C Treated many years ago when he lived in [place]. Nicotine dependence Posttraumatic stress disorder Surgical History Surgical History No history of previous surgery Family History Family History Father Diabetes mellitus Social History Social History Social History: The patient lives in [place] with his dog. 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 Occasional marijuana use. He has had problems with alcohol for quite some time and was sober for nearly 5 years but began drinking again about 4 years ago. he typically drinks 4 to 5 shots of fireball in night as well as to tall boys and 1 pt of vodka. About 4 months ago he was drinking 2 pt of vodka but has cut back. He designates his friend, Mason Mac, as his surrogate decision maker. Code status: Full code. Smoking packs per day: 1.5 Smoking cigarettes per day: 30.0 Smoking status: Current every day smoker Tobacco type: cigarettes Second hand tobacco smoke exposure: No Alcohol intake: current Drinks per week: 14 Substance use: current Substance use type: marijuana Last use: 09/30 Spiritual care concerns: Yes Exam Narrative: General appearance: Well-developed, well-nourished, restless, anxious, holding face by both hands, Skin: Normal color Head: Normocephalic, nontraumatic Eyes: Clear conjunctiva ENT: Oropharynx normal, ears normal, nose normal Neck: Supple, nontender Chest and respiratory: Airway patent, no respiratory distress, no accessory muscle use Heart: Regular rate/rhythm Abdomen: Soft, nontender, no organomegaly, quiet bowel sounds Vascular: Normal peripheral pulses, normal capillary refill. 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
[2021-02-18 14:26] LABS: Basophils Absolute Auto 0.1 K/mm3 (0.0-0.1); Basophils Percent Auto 0.9 % (0.2-1.2); Eosinophils Absolute Auto 0.1 K/mm3 (0-0.3); Eosinophils Percent Auto 1.1 % (0-4.4); Hematocrit 44.3 % (42.0-52.0); Hemoglobin 14.8 g/dL (14.0-18.0); Immature Granulocyte Absolute 0.05 K/mm3 (0.00-0.031); Immature Granulocyte Percent A 0.4 % (0-0.5); Lymphocytes Percent Auto 34.1 % (18.3-44.2); Mean Corpuscular HGB Conc 33.4 g/dl (32-36); Mean Corpuscular Volume 98.7 fl (80-100); Mean Platelet Volume 10.7 fl (7.4-10.4); Monocytes Percent Auto 8.2 % (2.6-8.5); Neutrophils Absolute Auto 6.5 K/mm3 (1.3-6.7); Neutrophils Percent Auto 55.3 % (45.5-73.1); Platelet Count Result 155 k/mm3 (150-375); Red Blood Count 4.49 M/mm3 (4.6-6.20); Red Cell Distribution Width 13.8 % (11.5-14.5); White Blood Count 11.7 K/mm3 (4.5-10.0)
[2021-02-18] MEDS: diazePAM INJ (*CRX) 10 MG/2 ML SYRINGE 5 MG IV PUSH ×2 (14:26→16:20)
[2021-02-18] MEDS: SODIUM CHLORIDE 0.9% IV 1,000 ML 999 ML IV CONT (14:26)
[2021-02-18] MEDS: THIAMINE HCL 200 MG/2 ML VIAL 100 MG IV PUSH (14:28)
[2021-02-18 14:38] LABS: Ethanol 49 mg/dL (<10)
[2021-02-18 14:40] LABS: Alanine Aminotransferase 47 U/L (4-50); Albumin Level 5.3 g/dL (3.5-5.1); Alkaline Phosphatase 127 U/L (38-126); Anion Gap 19 mmol/L (8-16); Aspartate Amino Transferase 75 U/L (17-59); Bilirubin,Total 0.6 mg/dL (0.2-1.3); Blood Urea Nitrogen 12 mg/dL (9-20); Calcium 9.4 mg/dL (8.4-10.2); Carbon Dioxide 19 mmol/L (22-30); Chloride 102 mmol/L (98-107); Estimated CRCL calculation 105 ml/min; Estimated Glomerular Filt Rate > 60; Glucose 108 mg/dL (65-110); Potassium 3.4 mmol/L (3.4-5.0); Sodium 140 mmol/L (137-145)
[2021-02-18 14:48] LABS: Prothrombin Time 12.8 Seconds (11.1-14.7)
[2021-02-18 14:50] LABS: Atypical Lymphocytes Present; Platelet Estimate Adequate (Adequate)
[2021-02-18 15:06] LABS: Add Urine Microscopic? YES; Appearance Urine Clear (Clear); Bilirubin Urine Negative (Negative); Blood Urine Negative (Negative); Color Urine Yellow (Yellow); Glucose Urine UA Negative (Negative); Ketones Urine Negative (Negative); Leukocyte Esterase Ur Negative LEU/UL (Negative); Mucus Urine Few /lpf; Nitrate Urine Negative (Negative); Protein Urine 2+ mg/dL (Negative); RBC Urine 0-2 /hpf (0-2); Specific Grav Ur 1.023 (1.001-1.035); Urobilinogen Urine Negative mg/dL (<2.0); WBC Urine 0-3 /hpf
[2021-02-18 15:13] LABS: Barbiturate Screen Urine Negative (Negative); Benzodiazepines Screen Urine Negative (Negative)
[2021-02-18 15:43] LABS: Amphetamine Screen Urine Negative (Negative); Cannabinoid Screen Urine Positive (Negative); Cocaine Screen Urine Negative (Negative); Methadone Screen Urine Negative (Negative); Opiate Screen Urine Negative (Negative); Phencyclidine Screen Urine Negative (Negative)
[2021-02-18 17:06] VITALS: BP 149/85; PULSE 97; RESP 18; O2SAT 100
[2021-02-18] MEDS: methylPREDNISolone SOD SUCC 125 MG VIAL IV PUSH (18:32)
[2021-02-18 19:51] VITALS: BP 177/77; PULSE 80; RESP 18; O2SAT 98
[2021-02-18 20:00] VITALS: BP 141/79; PULSE 56; RESP 20; TEMP 36.1; O2SAT 98
[2021-02-18 20:10] VITALS: BP 141/79; PULSE 56; RESP 20; TEMP 36.1; O2SAT 98; BMI 22.1
--- NOTE | 2021-02-18 20:14 | ADMGEN ---
This patient, Lm Kline, was admitted to Medical Room 252-01. Patient/family oriented to hospital policies and general routines including ID bracelet, bed and alarms, visiting hours, pain management, procedures, bathroom and other care routines, personal items, smoking policy, room service/diet, and visiting hours. Information on how to activate the Rapid Response Team has been discussed. Patient/Family are encouraged to report perceived risks to care and to ask questions if they do not understand what they are told or what they should do.
[2021-02-18] MEDS: LORazepam INJ (*CRX) 2 MG/ML VIAL 1 MG IV PUSH (20:36)
[2021-02-19] VITALS (8 sets, daily range): BP systolic 125–148; BP diastolic 74–80; PULSE 62–86; RESP 18–20; TEMP 36.1–37.6; O2SAT 98–100
[2021-02-19] MEDS: LORazepam INJ (*CRX) 2 MG/ML VIAL 1 MG IV PUSH ×4 (02:53→22:04)
--- NOTE | 2021-02-19 08:59 | PM.IMHP ---
H&P: HPI History of Present Illness Date/Time: 02/19/21 08:59 Chief Complaint: Weakness and tremors Narrative: Patient is 40 years old male was admitted through the emergency room with a complaint that he was drinking overnight and and he is feeling weak and has shakiness and tremors now. Patient also has drug screen positive for marijuana. Patient also have mild nausea, no vomiting. Patient denies any fever chills. Patient denies any chest pain or shortness of breath. Patient denies any abdominal pain. Review of Systems Review of Systems: All systems reviewed & are unremarkable except as noted in HPI and below (the history and physical examination.) [facility] Past Medical History Medical History Alcohol abuse Anxiety Bipolar disorder Depression Hepatitis C Treated many years ago when he lived in [place]. Nicotine dependence Posttraumatic stress disorder Surgical History Surgical History No history of previous surgery Family History Family History Father Diabetes mellitus Social History Social History Social History: The patient lives in [place] with his dog. 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 Occasional marijuana use. He has had problems with alcohol for quite some time and was sober for nearly 5 years but began drinking again about 4 years ago. he typically drinks 4 to 5 shots of fireball in night as well as to tall boys and 1 pt of vodka. About 4 months ago he was drinking 2 pt of vodka but has cut back. He designates his friend, Mason Mac, as his surrogate decision maker. Code status: Full code. Smoking packs per day: 1.5 Smoking cigarettes per day: 30.0 Smoking status: Current every day smoker Tobacco type: cigarettes Second hand tobacco smoke exposure: No Alcohol intake: current Drinks per week: 35 Substance use: current Substance use type: marijuana Last use: 09/30 Spiritual care concerns: No Meds Home Medications and Allergies Home Medications Medication Instructions Recorded Confirmed Type escitalopram oxalate 10 mg PO DAILY 02/18/21 02/18/21 History Allergies Allergy/AdvReac Type Severity Reaction Status Date / Time No Known Allergies Allergy Mild Verified 09/30/20 20:46 Vital Signs Vital Signs - 24 hr 02/18/21 13:41 02/18/21 17:06 02/18/21 19:51 Temperature 36.4 C Pulse Rate 80 97 80 Respiratory Rate 14 18 18 Blood Pressure 160/77 H 149/85 H 177/77 H Pulse Oximetry 100 100 98 02/18/21 20:00 02/18/21 20:10 02/19/21 00:00 Temperature 36.1 C L 36.1 C L 36.1 C L Pulse Rate 56 L 56 L 73 Respiratory Rate 20 20 18 Blood Pressure 141/79 H 141/79 H 137/74 Pulse Oximetry 98 98 100 02/19/21 03:12 02/19/21 03:13 Temperature 36.6 C 36.6 C Pulse Rate 75 75 Respiratory Rate 20 20 Blood Pressure 125/76 125/76 Pulse Oximetry 99 99 Exam Narrative: General appearance: Well-developed, well-nourished, restless, anxious, holding face by both hands, Skin: Normal color Head: Normocephalic, nontraumatic Eyes: Clear conjunctiva ENT: Oropharynx normal, ears normal, nose normal Neck: Supple, nontender Chest and respiratory: Airway patent, no respiratory distress, no accessory muscle use Heart: Regular rate/rhythm Abdomen: Soft, nontender, no organomegaly, quiet bowel sounds Vascular: Normal peripheral pulses, normal capillary refill. 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
[2021-02-19 09:50] LABS: Ethanol < 10 mg/dL (<10)
[2021-02-19] MEDS: ESCITALOPRAM OXALATE 10 MG TABLET PO (11:23)
[2021-02-19] MEDS: chlordiazePOXIDE (*CRX) 25 MG CAPSULE PO ×2 (13:44→21:08)
[2021-02-20 00:35] VITALS: BP 157/82; PULSE 70; RESP 18; TEMP 36.4; O2SAT 100
[2021-02-20 03:18] VITALS: BP 142/71; PULSE 64; RESP 20; TEMP 36.1; O2SAT 98
[2021-02-20] MEDS: chlordiazePOXIDE (*CRX) 25 MG CAPSULE PO (05:05)
[2021-02-20] MEDS: LORazepam INJ (*CRX) 2 MG/ML VIAL 1 MG IV PUSH (07:36)
[2021-02-20] MEDS: ESCITALOPRAM OXALATE 10 MG TABLET PO (07:37)
--- NOTE | 2021-02-20 09:58 | PM.DS ---
DS: Admitting Diagnosis Discharge Date February 20, 2021 Admitting Diagnosis Alcohol withdrawal DS: Discharge Diagnosis Discharge Diagnosis (1) Alcohol withdrawal: Qualifiers: Complication of substance-induced condition: uncomplicated Qualified Code(s): F10.230 - Alcohol dependence with withdrawal, uncomplicated Code(s): F10.239 - Alcohol dependence with withdrawal, unspecified Status: Acute Assessment and Plan: Follow CIWA scale, monitor signs of withdrawal. Give IV fluids with banana bag. (2) Synthetic cannabinoid dependence: Code(s): F19.20 - Other psychoactive substance dependence, uncomplicated Status: Acute Assessment and Plan: Counseling given continue current treatment. (3) Nicotine dependence: Qualifiers: Nicotine product type: cigarettes Substance use status: in withdrawal Qualified Code(s): F17.213 - Nicotine dependence, cigarettes, with withdrawal Code(s): F17.200 - Nicotine dependence, unspecified, uncomplicated Status: Acute Assessment and Plan: Counseling given continue current treatment DS: Summary Hospital Course Reason for hospitalization: Alcohol withdrawal Hospital Course: 40 years old male was admitted with complaint of having shakiness and nausea. Patient was found to have alcohol withdrawal. Patient also uses marijuana at home. Patient was given IV fluids and CIWA scale was monitored. Today patient is feeling good so patient was discharged home in stable condition. Patient is referred to outpatient alcohol rehab. Patient is advised follow-up with primary care physician outpatient next week. Time spent discussing smoking cessation with patient: 3 to 10 minutes Time Spent with Patient Time attestation: Total time spent providing and/or coordinating discharge services: Exam Narrative: General appearance: Well-developed, well-nourished, restless, anxious, holding face by both hands, Skin: Normal color Head: Normocephalic, nontraumatic Eyes: Clear conjunctiva ENT: Oropharynx normal, ears normal, nose normal Neck: Supple, nontender Chest and respiratory: Airway patent, no respiratory distress, no accessory muscle use Heart: Regular rate/rhythm Abdomen: Soft, nontender, no organomegaly, quiet bowel sounds Vascular: Normal peripheral pulses, normal capillary refill. 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, no gross motor defic Discharge Plan Discharge Attending physician on discharge: Hema Key Discharging Clinician: Hema Key Patient Disposition: Home, Self-Care Activity: as tolerated Diet: as tolerated and regular Patient Instructions: Antibiotic Form Stand Alone Forms: General Discharge Information Follow-up/Referrals: aGry Grant MD [Physician] - Discharge Medications: New chlordiazepoxide HCl 25 mg Capsule 25 mg PO Q8HR Qty: 30 RF: 0 Continued escitalopram oxalate 10 mg tablet 10 mg PO DAILY RF: 0 Date of admission: 02/18/21 17:51 Primary Care Provider: PHYSICIAN,[employer] SERGEANT Admitting Provider: Key Acuna Attending physician on admission: Key Acuna Condition: Improved Quality VTE Prophylaxis VTE prophylaxis: mechanical ordered
[2021-02-20 10:00] VITALS: BP 140/74; PULSE 71; RESP 16; TEMP 36.6; O2SAT 100
== END 2021-02-20 11:56 | disposition home or self-care (01) ==
LOC: ANHED 17:48 → ANH2MED 02-20 09:58
PROVIDERS: Admitting Provider Internal Medicine; Emergency Provider Emergency Medicine; PCP Family Medicine; Visit Provider Internal Medicine
DX: F10.230 Alcohol dependence with withdrawal, uncomplicated (principal); F19.20 Other psychoactive substance dependence, uncomplicated; F17.210 Nicotine dependence, cigarettes, uncomplicated
CPT/HCPCS: 36415; 80053; 80307; 81001; 85025; 85610; 96361; 96374; 96375; 96376; 99285; A9270; G0378; G0379; J2060; J2930; J3360; J3411; J7030

== ENCOUNTER 2021-07-19 17:50 | Observation (INO) | payer BC, SELFPAY ==
[2021-07-19] VITALS (11 sets, daily range): BP systolic 122–145; BP diastolic 59–84; PULSE 84–132; RESP 10–18; TEMP 36.3–36.7; O2SAT 97–99; BMI 23.1
--- NOTE | ~2021-07-19 | XR_ITS ---
EXAMINATION: XR chest 2V DATE: 07/19/2021 18:37 INDICATION: Shortness of breath TECHNIQUE: PA and lateral views of the chest are obtained. COMPARISON: 09/30/2020 FINDINGS: The lungs are free of acute opacities. There is no pleural effusion or pneumothorax. The ca rdiomediastinal silhouette is normal. The visualized bones and soft tissues are unremarkable. IMPRESSION: 1. No acute cardiopulmonary abnormality. Reviewed, dictated and finalized at location F.
--- NOTE | 2021-07-19 18:14 | ECG_ITS ---
Measurements Intervals [place] Rate: 118 P: 72 WV: 146 QRS: 46 QRSD: 94 T: 63 QT: 294 QTc: 413 Interpretive Statements SINUS TACHYCARDIA POSSIBLE LEFT ATRIAL ENLARGEMENT DELAYED PRECORDIAL R/S TRANSITION MINIMAL Q WAVES- INFERIOR LEADS ST ELEVATION IN DIFFUSE LEADS- PROBABLY EARLY REPOLARIZATION ABNORMAL ECG Electronically Signed On 07-19-2021 20:37:48 CDT by Lobito Salguero D.O.
[2021-07-19 18:31] LABS: Basophils Absolute Auto 0.1 K/mm3 (0.0-0.1); Basophils Percent Auto 0.7 % (0.2-1.2); Eosinophils Absolute Auto 0.1 K/mm3 (0-0.3); Eosinophils Percent Auto 0.4 % (0-4.4); Hematocrit 47.4 % (42.0-52.0); Hemoglobin 16.3 g/dL (14.0-18.0); Immature Granulocyte Absolute 0.14 K/mm3 (0.00-0.031); Immature Granulocyte Percent A 0.7 % (0-0.5); Lymphocytes Absolute Auto 2.07 K/mm3 (0.9-3.2); Lymphocytes Percent Auto 10.8 % (18.3-44.2); Mean Corpuscular HGB Conc 34.4 g/dl (32-36); Mean Platelet Volume 11.3 fl (7.4-10.4); Monocytes Absolute Auto 1.8 K/mm3 (0.1-0.6); Monocytes Percent Auto 9.6 % (2.6-8.5); Neutrophils Percent Auto 77.8 % (45.5-73.1); Platelet Count Result 224 k/mm3 (150-375); Red Blood Count 4.94 M/mm3 (4.6-6.20); Red Cell Distribution Width 12.7 % (11.5-14.5); White Blood Count 19.2 K/mm3 (4.5-10.0)
[2021-07-19 18:42] LABS: INR 0.9; Prothrombin Time 12.2 Seconds (11.1-14.7)
--- NOTE | 2021-07-19 18:45 | ED.CHESTPAIN ---
HPI - Chest Pain General Chief Complaint: Chest Pain Stated Complaint: cramping Time Seen by Provider: 07/19/21 18:42 Source: patient Mode of arrival: ambulatory Limitations: no limitations History of Present Illness HPI narrative: Patient is a 41 years old white male presented to the ED complaining of muscular cramps all over his body mainly in the chest started associated with nausea, no vomiting. Temperature is 84 degree outside today.. History of depression, patient does not smoke, drink and uses marijuana. Related Data Home Medications Medication Instructions Recorded Confirmed escitalopram oxalate 10 mg tablet 10 mg PO DAILY 02/18/21 02/18/21 Allergies Allergy/AdvReac Type Severity Reaction Status Date / Time No Known Allergies Allergy Mild Verified 09/30/20 20:46 Review of Systems Review of Systems: All systems reviewed & are unremarkable except as noted in HPI and below PMFSH Past Medical History Medical History Alcohol abuse Anxiety Bipolar disorder Depression Hepatitis C Treated many years ago when he lived in [place]. Nicotine dependence Posttraumatic stress disorder Surgical History Surgical History No history of previous surgery Family History Family History Father Diabetes mellitus Social History Social History Social History: The patient lives in [place] with his dog. 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 Occasional marijuana use. He has had problems with alcohol for quite some time and was sober for nearly 5 years but began drinking again about 4 years ago. he typically drinks 4 to 5 shots of fireball in night as well as to tall boys and 1 pt of vodka. About 4 months ago he was drinking 2 pt of vodka but has cut back. He designates his friend, Mason Mac, as his surrogate decision maker. Code status: Full code. Smoking packs per day: 1.5 Smoking cigarettes per day: 30.0 Smoking status: Current every day smoker Tobacco type: cigarettes Second hand tobacco smoke exposure: No Alcohol intake: current Drinks per week: 35 Substance use: current Substance use type: marijuana Last use: 09/30 Spiritual care concerns: No Exam Narrative: General appearance: Well-developed, well-nourished, looks restless Skin: Normal color Head: Normocephalic, nontraumatic Eyes: Clear conjunctiva ENT: Oropharynx normal, ears normal, nose normal Neck: Supple, nontender Chest and respiratory: Airway patent, no respiratory distress, no accessory muscle use Heart: Regular rate/rhythm Abdomen: Soft, nontender, no organomegaly, quiet bowel sounds Vascular: Normal peripheral pulses, normal capillary refill. 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
[2021-07-19 18:58] LABS: Alanine Aminotransferase 96 U/L (6-50); Albumin Level 5.9 g/dL (3.5-5.1); Alkaline Phosphatase 150 U/L (38-126); Anion Gap 19 mmol/L (8-16); Aspartate Amino Transferase 84 U/L (17-59); Bilirubin,Total 0.7 mg/dL (0.2-1.3); Blood Urea Nitrogen 28 mg/dL (9-20); Calcium 12.1 mg/dL (8.4-10.2); Carbon Dioxide 22 mmol/L (22-30); Chloride 92 mmol/L (98-107); Creatine Kinase 150 U/L (55-170); Estimated CRCL calculation 35 ml/min; Estimated Glomerular Filt Rate 25; Glucose 133 mg/dL (65-110); Lipase 107 U/L (23-300); Potassium 4.2 mmol/L (3.4-5.0); Sodium 133 mmol/L (137-145); Troponin I 0.114 ng/mL (0.000-0.034)
[2021-07-19] MEDS: SODIUM CHLORIDE 0.9% IV 1,000 ML 999 ML IV CONT ×3 (19:07→20:40)
--- NOTE | 2021-07-19 19:07 | ED.CHESTPAIN ---
HPI - Chest Pain General Chief Complaint: Chest Pain Stated Complaint: cramping Time Seen by Provider: 07/19/21 18:42 Source: patient Mode of arrival: ambulatory Limitations: no limitations History of Present Illness HPI narrative: Patient's Related Data Home Medications Medication Instructions Recorded Confirmed escitalopram oxalate 10 mg tablet 10 mg PO DAILY 02/18/21 02/18/21 Allergies Allergy/AdvReac Type Severity Reaction Status Date / Time No Known Allergies Allergy Mild Verified 09/30/20 20:46 PMFSH Past Medical History Medical History Alcohol abuse Anxiety Bipolar disorder Depression Hepatitis C Treated many years ago when he lived in [place]. Nicotine dependence Posttraumatic stress disorder Surgical History Surgical History No history of previous surgery Family History Family History Father Diabetes mellitus Social History Social History Social History: The patient lives in [place] with his dog. 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 Occasional marijuana use. He has had problems with alcohol for quite some time and was sober for nearly 5 years but began drinking again about 4 years ago. he typically drinks 4 to 5 shots of fireball in night as well as to tall boys and 1 pt of vodka. About 4 months ago he was drinking 2 pt of vodka but has cut back. He designates his friend, Mason Mac, as his surrogate decision maker. Code status: Full code. Smoking packs per day: 1.5 Smoking cigarettes per day: 30.0 Smoking status: Current every day smoker Tobacco type: cigarettes Second hand tobacco smoke exposure: No Alcohol intake: current Drinks per week: 35 Substance use: current Substance use type: marijuana Last use: 09/30 Spiritual care concerns: No Course Vital Signs Vital signs: Vital Signs Temperature 36.3 C L 07/19/21 18:11 Pulse Rate 132 H 07/19/21 18:11 Respiratory Rate 18 07/19/21 18:11 Blood Pressure 145/80 H 07/19/21 18:11 Pulse Oximetry 99 07/19/21 18:11 Oxygen Delivery Room Air 07/19/21 18:11 Temperature 36.3 C L 07/19/21 18:11 Pulse Rate 132 H 07/19/21 18:11 Respiratory Rate 18 07/19/21 18:11 Blood Pressure 145/80 H 07/19/21 18:11 Pulse Oximetry 98 07/19/21 18:19 Oxygen Delivery Room Air 07/19/21 18:19 MDM - Chest Pain Lab Data Result diagrams: 07/19/21 18:26 07/19/21 18:25 Labs: Lab Results 07/19/21 07/19/21 07/19/21 Range/Units 18:25 18:26 18:26 WBC 19.2 H (4.5-10.0) K/mm3 RBC 4.94 (4.6-6.20) M/mm3 Hgb 16.3 (14.0-18.0) g/dL Hct 47.4 (42.0-52.0) % MCV 96.0 (80-100) fl MCH 33.0 (26-34) pg MCHC 34.4 (32-36) g/dl RDW 12.7 (11.5-14.5) % Plt Count 224 (150-375) k/mm3 MPV 11.3 H (7.4-10.4) fl Immature Gran % (Auto) 0.7 H (0-0.5) % Neut % (Auto) 77.8 H (45.5-73.1) % Lymph % (Auto) 10.8 L (18.3-44.2) % Bremer % (Auto) 9.6 H (2.6-8.5) % Eos % (Auto) 0.4 (0-4.4) % Baso % (Auto) 0.7 (0.2-1.2) % Lymph # (Auto) 2.07 (0.9-3.2) K/mm3 Bremer # (Auto) 1.8 H (0.1-0.6) K/mm3 Eos # (Auto) 0.1 (0-0.3) K/mm3 Baso # (Auto) 0.1 (0.0-0.1) K/mm3 Abs Immat Gran (auto) 0.14 H (0.00-0.031) K/mm3 Absolute Neuts (auto) 15.0 H (1.3-6.7) K/mm3 Absolute Nucleated RBC 0.0 (0.0-0.012) K/mm3 Nucleated RBC % 0.0 (0.0-0.2) % PT 12.2 (11.1-14.7) Seconds INR 0.9 APTT 23.0 (22.3-36.8) SECONDS Sodium 133 L (137-145) mmol/L Potassium 4.2 (3.4-5.0) mmol/L Chloride 92 L (98-107) mmol/L Carbon Dioxide 22 (22-30) mmol/L Anion Gap 19 H (8-16) mmol/L BUN 28 H D (9-20) mg/dL Creatinine 2.80 H (0.7-1.3) mg/dL E
--- NOTE | 2021-07-19 20:50 | PC.NURSE ---
CALRIFIED REPEAT EKG ORDER. DR. ERG HOPE STATES ONE EKG HAS BEEN PERFORMED NO NEED FOR ANOTHER AT THIS TIME.
--- NOTE | 2021-07-19 21:53 | ADMGEN ---
This patient, Lm Kline, was admitted to IMU Room 210-01. Patient/family oriented to hospital policies and general routines including ID bracelet, bed and alarms, visiting hours, pain management, procedures, bathroom and other care routines, personal items, smoking policy, room service/diet, and visiting hours. Information on how to activate the Rapid Response Team has been discussed. Patient/Family are encouraged to report perceived risks to care and to ask questions if they do not understand what they are told or what they should do.
[2021-07-19 21:56] LABS: Troponin I 0.082 ng/mL (0.000-0.034)
[2021-07-19] MEDS: SODIUM CHLORIDE 0.9% IV 1,000 ML 200 ML IV CONT (22:45)
--- NOTE | 2021-07-19 23:55 | PM.IMHP ---
H&P: HPI History of Present Illness Date/Time: 07/19/21 23:55 Chief Complaint: Cramping all over Narrative: 41-year-old male with past medical history of chronic tobacco abuse, alcoholism and multiple prior medical encounter for dehydration and acute kidney injury who presented to the ER via private vehicle due to cramping all over and chest pain. 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 He only drink 3 bottles of water while working. Shortly before coming into the ER he was having cramping all over in his arms and legs. Was also having left lateral rib in chest discomfort. He had had minimal urine output throughout the afternoon and evening. He had some associated nausea but no vomiting. He reports that he feels thirsty. He has not had any shortness of he did not have any lightheadedness or vision changes. He reports his had prior hospitalizations for acute kidney injury. He received 3 L of isotonic fluids in the ER. Since he received the fluids his muscle cramps have resolved. In the ER troponin was noted to be elevated but is already trending downward. He reports that he has voided once since arriving to the intermediate unit. He thinks he needs to void again at the time of my evaluation. Does drink 6 tall boys a day. He will get irritable and shaky if he does not drink alcohol daily. He does smoke 1.5 packs of cigarettes per day. He also uses marijuana. Review of Systems Review of Systems: 12 systems were reviewed with pertinent positives and negatives per HPI. Except as documented in the HPI, all other systems were reviewed and are negative. [facility] Past Medical History Medical History Alcohol abuse Anxiety Bipolar disorder Depression Hepatitis C Treated many years ago when he lived in [place]. Nicotine dependence Posttraumatic stress disorder Surgical History Surgical History No history of previous surgery Family History Family History Father Diabetes mellitus Drug abuse Mother No active medical problems Social History Social History (Updated 07/20/21 @ 01:59 by Myah Wells DO) Social History: The patient lives in [place] with his dog. 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 Smokes about 1.5-2 packs of cigarettes a day since he was a teenager. Occasional marijuana use. He has had problems with alcohol for quite some time and was sober for nearly 5 years but began drinking again about 4 years ago. He reports that he drinks about 6 tall boys a night. In the past he has drank up to 2 pt of vodka a night. He has 1 son who is 20 years old and that he has contact with. He has a 12-year-old daughter that he does not see. Surrogate decision maker: Mason Mac (friend) Code status: Full code. Smoking packs per day: 1.5 Smoking cigarettes per day: 30.0 Years smoked: 30 Smoking pack-years: 45.00 Smoking status: Current every day smoker Tobacco type: cigarettes Second hand tobacco smoke exposure: No Alcohol intake: current Drinks per week: 12 Substance use: current Substance use type: marijuana Last use: 09/30 Spiritual care concerns: No Meds Home Medications and Allergies Home Medications Medication Instructions Recorded Confirmed Type escitalopram oxalate 10 mg tablet 10 mg PO DAILY 02/18/21 07/19/21 History Allergies Allergy/AdvReac Type Severity Reaction Status Date / Time No Known Allergies Allergy Mild Verified 09/30/20 20:46 Vital Signs Vital Signs - 24 hr 07/19/21 18:11 07/19/21 18:18 07/19/21 18:19 Temperature 97.4 F L Pulse Rate 132 H Respiratory Rate 18 Blood Pressure 145/80 H Pulse Oximetry 99 98 Oxygen Delivery Room Air Room Air Room Air 07/19/21 19:10 07/19/21 19:10 07/19/21 18:57 Temperatu
[2021-07-20] VITALS (16 sets, daily range): BP systolic 120–136; BP diastolic 60–77; PULSE 47–90; RESP 16–20; TEMP 36.4–37.1; O2SAT 98–100
[2021-07-20] MEDS: NICOTINE (*PBKC) 21 MG PATCH 1 PATCH TRANSDERM ×2 (01:53→08:15)
[2021-07-20] MEDS: THIAMINE HCL 200 MG/2 ML VIAL 100 MG IV PUSH (01:54)
[2021-07-20] MEDS: chlordiazePOXIDE (*CRX) 5 MG CAPSULE PO ×3 (01:57→19:50)
[2021-07-20] MEDS: SODIUM CHLORIDE 0.9% IV 1,000 ML 200 ML IV CONT ×4 (03:38→18:56)
[2021-07-20 05:03] LABS: Basophils Absolute Auto 0.1 K/mm3 (0.0-0.1); Basophils Percent Auto 0.7 % (0.2-1.2); Eosinophils Absolute Auto 0.2 K/mm3 (0-0.3); Eosinophils Percent Auto 1.6 % (0-4.4); Hematocrit 40.7 % (42.0-52.0); Hemoglobin 13.5 g/dL (14.0-18.0); Immature Granulocyte Absolute 0.03 K/mm3 (0.00-0.031); Immature Granulocyte Percent A 0.3 % (0-0.5); Lymphocytes Absolute Auto 2.06 K/mm3 (0.9-3.2); Lymphocytes Percent Auto 20.5 % (18.3-44.2); Mean Corpuscular HGB Conc 33.2 g/dl (32-36); Mean Corpuscular Hemoglobin 33.1 pg (26-34); Mean Corpuscular Volume 99.8 fl (80-100); Mean Platelet Volume 11.6 fl (7.4-10.4); Monocytes Absolute Auto 1.1 K/mm3 (0.1-0.6); Monocytes Percent Auto 10.6 % (2.6-8.5); Neutrophils Absolute Auto 6.7 K/mm3 (1.3-6.7); Neutrophils Percent Auto 66.3 % (45.5-73.1); Platelet Count Result 149 k/mm3 (150-375); Red Blood Count 4.08 M/mm3 (4.6-6.20); Red Cell Distribution Width 12.9 % (11.5-14.5); White Blood Count 10.1 K/mm3 (4.5-10.0)
[2021-07-20 05:15] LABS: Anion Gap 6 mmol/L (8-16); Blood Urea Nitrogen 25 mg/dL (9-20); Calcium 8.7 mg/dL (8.4-10.2); Carbon Dioxide 25 mmol/L (22-30); Chloride 107 mmol/L (98-107); Estimated CRCL calculation 69 ml/min; Estimated Glomerular Filt Rate 56; Glucose 103 mg/dL (65-110); Potassium 4.1 mmol/L (3.4-5.0); Sodium 138 mmol/L (137-145)
--- NOTE | 2021-07-20 06:00 | ECG_ITS ---
Measurements Intervals [place] Rate: 66 P: 30 [place]: 176 QRS: 9 QRSD: 96 T: 37 QT: 415 QTc: 436 Interpretive Statements SINUS RHYTHM NORMAL ECG COMPARED TO ECG 07/19/2021 18:19:45 HEART RATE HAS DECREASED Electronically Signed On 07-20-2021 11:42:37 CDT by Reji Simon M.D.
[2021-07-20] MEDS: ESCITALOPRAM OXALATE 10 MG TABLET PO (08:14)
[2021-07-20] MEDS: THIAMINE HCL 100 MG TABLET PO (08:15)
--- NOTE | 2021-07-20 11:33 | PM.IMPN ---
Progress Note: A&P Assessment and Plan (1) Dehydration after exertion: Code(s): E86.0 - Dehydration Status: Acute (2) Heat exhaustion: Code(s): T67.5XXA - Heat exhaustion, unspecified, initial encounter Status: Acute (3) KAN (acute kidney injury): Code(s): N17.9 - Acute kidney failure, unspecified Status: Acute (4) Sinus tachycardia: Code(s): R00.0 - Tachycardia, unspecified Status: Acute (5) Elevated troponin: Code(s): R77.8 - Other specified abnormalities of plasma proteins Status: Acute (6) Synthetic cannabinoid dependence: Code(s): F19.20 - Other psychoactive substance dependence, uncomplicated Status: Acute (7) Alcohol abuse: Code(s): F10.10 - Alcohol abuse, uncomplicated Status: Acute (8) Nicotine dependence: Qualifiers: Nicotine product type: cigarettes Substance use status: in withdrawal Qualified Code(s): F17.213 - Nicotine dependence, cigarettes, with withdrawal Code(s): F17.200 - Nicotine dependence, unspecified, uncomplicated Status: Acute Plan ?Shortly before coming into the ER he was having cramping all over in his arms and legs.? Was also having left lateral rib in chest discomfort.? He had had minimal urine output throughout the afternoon and evening.? He had some associated nausea but no vomiting.? He reports that he feels thirsty.? He has not had any shortness of he did not have any lightheadedness or vision changes.? He reports his had prior hospitalizations for acute kidney injury.? He received 3 L of isotonic fluids in the ER.? Since he received the fluids his muscle cramps have resolved.? In the ER troponin was noted to be elevated but is already trending downward.? He reports that he has voided once since arriving to the intermediate unit.? He thinks he needs to void again at the time of my evaluation. 07/20/21 KAN resolving anticipate discharge home tomorrow Patient advised to avoid heat without proper hydration Daily drinker high risk for withdrawal CIWA ordered Currently on low-dose Librium and Ativan IV ordered p.r.n. smoking cessation encouarged A.m. labs to assess renal function and anticipate discharge before 10:00 a.m. Subjective Date/time seen: 07/20/21 11:33 Patient doing okay aware that he was in renal failure and that his kidney function is improving Exam Narrative: GEN: NAD, AAOx3, cooperative HEENT: NCAT, MMM, EOMI Neck: no JVD Heart: S1S2 decreased rate with regular rhythm Lungs: CTA B/l Abd: soft, NT, ND, bowel sounds normoactive Ext: moves all, no cyanosis, no clubbing, no edema Neuro: Cranial nerves intact no focal neurological deficits appreciated Psych: Mood and affect congruent anxious Objective Data Vital Signs Vital Signs: Vital Signs - 24 hr 07/19/21 18:11 07/19/21 18:18 07/19/21 18:19 Temperature 97.4 F L Pulse Rate 132 H Respiratory Rate 18 Blood Pressure 145/80 H Pulse Oximetry 99 98 Oxygen Delivery Room Air Room Air Room Air 07/19/21 19:10 07/19/21 19:10 07/19/21 18:57 Temperature Pulse Rate 100 100 109 H Respiratory Rate 18 13 Blood Pressure 133/84 Pulse Oximetry 98 98 Oxygen Delivery 07/19/21 19:01 07/19/21 19:10 07/19/21 20:06 Temperature Pulse Rate 107 H 95 86 Respiratory Rate 13 14 14 Blood Pressure 133/84 Pulse Oximetry 98 97 97 Oxygen Delivery 07/19/21 20:15 07/19/21 20:34 07/19/21 21:30 Temperature 98.0 F Pulse Rate 84 86 85 Respiratory Rate 13 10 L 18 Blood Pressure 137/65 Pulse Oximetry 98 97 97 Oxygen Delivery 07/19/21 22:00 07/19/21 23:41 07/19/21 21:30 Temperature 97.9 F Pulse Rate 93 93 Respiratory Rate 18 Blood Pressure 122/59 L Pulse Oximetry 99 Oxygen Delivery Room Air 07/20/21 00:00 07/20/21 00:00 07/20/21 02:00 Temperature Pulse Rate 84 84 72 Respiratory Rate 18 Blood Pressure Pulse Oximetry 99 Oxygen Delivery Room Air
[2021-07-20] MEDS: ACETAMINOPHEN 325 MG TABLET 650 MG PO (19:56)
[2021-07-20] MEDS: FOLIC ACID 1 MG TABLET PO (21:26)
[2021-07-21] VITALS: BP 133/77; PULSE 47; PULSE 57
[2021-07-21 02:00] VITALS: PULSE 48
[2021-07-21 04:00] VITALS: BP 146/65; PULSE 52; PULSE 58; RESP 18; TEMP 36.7; O2SAT 99
[2021-07-21] MEDS: SODIUM CHLORIDE 0.9% IV 1,000 ML 75 ML IV CONT (04:07)
[2021-07-21] MEDS: chlordiazePOXIDE (*CRX) 5 MG CAPSULE PO (04:08)
[2021-07-21 05:21] LABS: Alanine Aminotransferase 61 U/L (6-50); Albumin Level 3.9 g/dL (3.5-5.1); Alkaline Phosphatase 100 U/L (38-126); Anion Gap 3 mmol/L (8-16); Aspartate Amino Transferase 72 U/L (17-59); Bilirubin,Total 0.6 mg/dL (0.2-1.3); Blood Urea Nitrogen 12 mg/dL (9-20); Calcium 8.7 mg/dL (8.4-10.2); Carbon Dioxide 24 mmol/L (22-30); Chloride 111 mmol/L (98-107); Estimated CRCL calculation 105 ml/min; Estimated Glomerular Filt Rate > 60; Glucose 93 mg/dL (65-110); Phosphorus 2.7 mg/dL (2.5-4.5); Potassium 4.2 mmol/L (3.4-5.0); Sodium 138 mmol/L (137-145)
[2021-07-21 06:00] VITALS: PULSE 56
--- NOTE | 2021-07-21 07:50 | PM.DS ---
DS: Admitting Diagnosis Discharge Date 07/21/21 Admitting Diagnosis (1) KAN (acute kidney injury): ?Code(s): N17.9 - Acute kidney failure, unspecified ?Status:?Acute (2) Elevated troponin: ?Code(s): R77.8 - Other specified abnormalities of plasma proteins ?Status:?Acute (3) Dehydration after exertion: ?Code(s): E86.0 - Dehydration ?Status:?Acute (4) Nicotine dependence: ?Qualifiers: ?Nicotine product type:?cigarettes??Substance use status:?in withdrawal? Qualified Code(s):?F17.213 - Nicotine dependence, cigarettes, with withdrawal ?Code(s): F17.200 - Nicotine dependence, unspecified, uncomplicated ?Status:?Acute (5) Alcohol abuse: ?Code(s): F10.10 - Alcohol abuse, uncomplicated ?Status:?Acute DS: Discharge Diagnosis Discharge Diagnosis Plan (1) Dehydration after exertion: ?Code(s): E86.0 - Dehydration ?Status:?Acute (2) Heat exhaustion: ?Code(s): T67.5XXA - Heat exhaustion, unspecified, initial encounter ?Status:?Acute (3) KAN (acute kidney injury): ?Code(s): N17.9 - Acute kidney failure, unspecified ?Status:?Acute (4) Sinus tachycardia: ?Code(s): R00.0 - Tachycardia, unspecified ?Status:?Acute (5) Elevated troponin: ?Code(s): R77.8 - Other specified abnormalities of plasma proteins ?Status:?Acute (6) Synthetic cannabinoid dependence: ?Code(s): F19.20 - Other psychoactive substance dependence, uncomplicated ?Status:?Acute (7) Alcohol abuse: ?Code(s): F10.10 - Alcohol abuse, uncomplicated ?Status:?Acute (8) Nicotine dependence: ?Qualifiers: ?Nicotine product type:?cigarettes??Substance use status:?in withdrawal? Qualified Code(s):?F17.213 - Nicotine dependence, cigarettes, with withdrawal ?Code(s): F17.200 - Nicotine dependence, unspecified, uncomplicated ?Status:?Acute DS: Summary Hospital Course Reason for hospitalization: Cramping all over Hospital Course: ?Shortly before coming into the ER he was having cramping all over in his arms and legs.? Was also having left lateral rib in chest discomfort.? He had had minimal urine output throughout the afternoon and evening.? He had some associated nausea but no vomiting.? He reports that he feels thirsty.? He has not had any shortness of he did not have any lightheadedness or vision changes.? He reports his had prior hospitalizations for acute kidney injury.? He received 3 L of isotonic fluids in the ER.? Since he received the fluids his muscle cramps have resolved.? In the ER troponin was noted to be elevated but is already trending downward.? He reports that he has voided once since arriving to the intermediate unit.? He thinks he needs to void again at the time of my evaluation. Initially patient's acute kidney injury was thought to be due to a heat exposure.? But is likely multifactorial due to heat exposure and chronic heavy alcohol use.? Patient's symptoms cramping and has been never resolved.? His urine output has increased.? His tachycardia resolved.? Will continue aggressive IV fluid hydration at 200 mL an hour.? I have discussed in detail with the patient that if he continues to have these episodes of dehydration and not taking care of his hydration status eventually his kidney function may not recover.? Encouraged the patient to be drinking at least 6 L of fluid and or electrolyte supplements each day when he is working out in the heat.? Will repeat CBC and BMP in a.m.. The patient did have an elevated troponin on presentation.? His chest pain was atypical and likely due to a muscle cramping associated with dehydration.? His troponin is already trending downward. Patient does have leukocytosis by suspect this is due to stress reaction.? Each time in the past when he has presented with dehydration he has had similar response.? Will repeat CBC in a.m.. The patient voices desire to quit drinking alcohol.? He is not currently
[2021-07-21] MEDS: ESCITALOPRAM OXALATE 10 MG TABLET PO (08:14)
[2021-07-21] MEDS: THIAMINE HCL 100 MG TABLET PO (08:14)
[2021-07-21] MEDS: FOLIC ACID 1 MG TABLET PO (08:14)
== END 2021-07-21 08:18 | disposition home or self-care (01) ==
LOC: ANHED 20:19 → ANHIMU 21:13
PROVIDERS: Admitting Provider Internal Medicine; Emergency Provider Emergency Medicine; PCP Family Medicine; Visit Provider Hospitalist
DX: E86.0 Dehydration (principal); T67.5XXA Heat exhaustion, unspecified, initial encounter; N17.9 Acute kidney failure, unspecified; R07.9 Chest pain, unspecified; F17.210 Nicotine dependence, cigarettes, uncomplicated; F10.10 Alcohol abuse, uncomplicated; R00.0 Tachycardia, unspecified; F19.20 Other psychoactive substance dependence, uncomplicated; R77.8 Other specified abnormalities of plasma proteins
CPT/HCPCS: 36415; 71046; 80048; 80053; 82550; 83690; 83735; 84100; 84484; 85025; 85610; 85730; 93005; 96360; 96361; 96374; 99285; A9270; G0378; G0379; J3411; J7030

== ENCOUNTER 2021-08-24 03:10 | Observation (INO) | payer BC, SELFPAY ==
[2021-08-24] VITALS (28 sets, daily range): BP systolic 115–132; BP diastolic 53–110; PULSE 58–98; RESP 9–23; TEMP 36.5–36.9; O2SAT 96–100; BMI 23.6
--- NOTE | 2021-08-24 03:57 | ECG_ITS ---
Measurements Intervals [place] Rate: 77 P: 6 [place]: 162 QRS: 11 QRSD: 96 T: 49 QT: 401 QTc: 454 Interpretive Statements SINUS RHYTHM ST ELEVATION IN DIFFUSE LEADS, PROBABLY EARLY REPOLARIZATION BORDERLINE ECG Electronically Signed On 08-24-2021 6:17:14 CDT by Lobito Salguero D.O.
--- NOTE | 2021-08-24 03:57 | ED.GENADULT ---
HPI - General Adult General Chief complaint: Unspecified Stated complaint: MUSCLE CRAMPS Time Seen by Provider: 08/24/21 03:43 History of Present Illness HPI narrative: 41-year-old male with previous history of KAN presented to the emergency department for evaluation of symptoms of dehydration including nausea vomiting and abdominal and muscular cramping. Patient states that he was working outside from [employer] secondary to 130. When he stopped working at approximately 130 he had onset of the nausea vomiting cramping. Patient states he has been attempting to drink water but due to the emesis he has not been able to keep down water. Patient states that his cramping symptoms have persisted. Related Data Allergies Allergy/AdvReac Type Severity Reaction Status Date / Time No Known Allergies Allergy Mild Verified 08/24/21 03:18 Review of Systems Review of Systems: CONSTITUTIONAL: Denies fever, chills, or sweats. EYES: Denies visual changes, redness, or discharge. ENT: Denies rhinorrhea, congestion, sore throat, or otalgia. CARDIOVASCULAR: Denies chest pain, palpitations, or edema. RESPIRATORY: Denies cough or dyspnea. GASTROINTESTINAL: Denies abdominal pain, nausea, vomiting, or diarrhea. GENITOURINARY: Denies dysuria or hematuria. SKIN: Denies rash or itching. MUSCULOSKELETAL: See HPI NEUROLOGIC: Denies headache, numbness, or weakness. [facility] Past Medical History Medical History Alcohol abuse Allergies Anxiety Bipolar disorder Depression Heat exhaustion Hepatitis C Treated many years ago when he lived in [place]. Nicotine dependence Posttraumatic stress disorder Rhabdomyolysis Transaminitis Surgical History Surgical History No history of previous surgery Family History Family History (Updated 08/09/21 @ 10:11 by Ariadne Lewis CMA) Father Diabetes mellitus Drug abuse Depression Anxiety Alcoholism Hypertension Heart problem Mother Alcoholism Depression Anxiety Grandparent Carcinoma of colon Social History Social History (Updated 07/20/21 @ 01:59 by Myah Wells DO) Social History: The patient lives in [place] with his dog. 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 Smokes about 1.5-2 packs of cigarettes a day since he was a teenager. Occasional marijuana use. He has had problems with alcohol for quite some time and was sober for nearly 5 years but began drinking again about 4 years ago. He reports that he drinks about 6 tall boys a night. In the past he has drank up to 2 pt of vodka a night. He has 1 son who is 20 years old and that he has contact with. He has a 12-year-old daughter that he does not see. Surrogate decision maker: Mason Mac (friend) Code status: Full code. Smoking packs per day: 1.5 Smoking cigarettes per day: 30.0 Years smoked: 30 Smoking pack-years: 45.00 Smoking status: Current every day smoker Tobacco type: cigarettes Second hand tobacco smoke exposure: No Alcohol intake: current Drinks per week: 12 Substance use: current Substance use type: marijuana Last use: 09/30 Spiritual care concerns: No Course Course Emergency Course: Patient was treated with 2 L of normal saline. Patient does have significant KAN. Case was discussed with the hospitalist and patient was accepted for admission for further rehydration. Vital Signs Vital signs: Vital Signs Pulse Rate 97 08/24/21 03:11 Respiratory Rate 15 08/24/21 03:11 Blood Pressure 119/86 08/24/21 03:11 Pulse Oximetry 97 08/24/21 03:11 Oxygen Delivery Room Air 08/24/21 03:11 Pulse Rate 71 08/24/21 08:16 Respiratory Rate 19 08/24/21 08:16 Blood Pressure 125/71 08/24/21 08:16 Pulse Oximetry 99 08/24/21 08:16 Oxygen Delivery Room Air 08/24/21 03:11 Medical Decision Making Vital Signs Vital Signs: Vital Signs Puls
[2021-08-24 03:58] LABS: Basophils Absolute Auto 0.1 K/mm3 (0.0-0.1); Basophils Percent Auto 0.6 % (0.2-1.2); Eosinophils Absolute Auto 0.2 K/mm3 (0-0.3); Eosinophils Percent Auto 1.9 % (0-4.4); Hematocrit 43.1 % (42.0-52.0); Hemoglobin 14.8 g/dL (14.0-18.0); Immature Granulocyte Absolute 0.05 K/mm3 (0.00-0.031); Immature Granulocyte Percent A 0.4 % (0-0.5); Lymphocytes Absolute Auto 2.49 K/mm3 (0.9-3.2); Lymphocytes Percent Auto 19.2 % (18.3-44.2); Mean Corpuscular HGB Conc 34.3 g/dl (32-36); Mean Corpuscular Hemoglobin 32.7 pg (26-34); Mean Corpuscular Volume 95.1 fl (80-100); Mean Platelet Volume 11.1 fl (7.4-10.4); Monocytes Absolute Auto 1.3 K/mm3 (0.1-0.6); Monocytes Percent Auto 10.2 % (2.6-8.5); Neutrophils Absolute Auto 8.8 K/mm3 (1.3-6.7); Neutrophils Percent Auto 67.7 % (45.5-73.1); Platelet Count Result 217 k/mm3 (150-375); Red Blood Count 4.53 M/mm3 (4.6-6.20); Red Cell Distribution Width 12.6 % (11.5-14.5); White Blood Count 12.9 K/mm3 (4.5-10.0)
[2021-08-24 04:08] LABS: Alanine Aminotransferase 50 U/L (6-50); Albumin Level 5.4 g/dL (3.5-5.1); Alkaline Phosphatase 113 U/L (38-126); Anion Gap 14 mmol/L (8-16); Aspartate Amino Transferase 66 U/L (17-59); Bilirubin,Total 0.6 mg/dL (0.2-1.3); Blood Urea Nitrogen 39 mg/dL (9-20); Carbon Dioxide 25 mmol/L (22-30); Chloride 91 mmol/L (98-107); Estimated Glomerular Filt Rate 27; Glucose 115 mg/dL (65-110); Lactic Acid Reflex 1.1 mmol/L (0.7-2.0); Potassium 3.7 mmol/L (3.4-5.0); Sodium 130 mmol/L (137-145)
[2021-08-24] MEDS: SODIUM CHLORIDE 0.9% IV 1,000 ML 999 ML IV CONT ×3 (04:29→06:50)
[2021-08-24 05:00] LABS: Appearance Urine Clear (Clear); Bilirubin Urine Negative (Negative); Blood Urine Negative (Negative); Color Urine Yellow (Yellow); Glucose Urine UA Negative (Negative); Ketones Urine Trace mg/dL (Negative); Leukocyte Esterase Ur Negative LEU/UL (Negative); Nitrate Urine Negative (Negative); Protein Urine Trace mg/dL (Negative); Urobilinogen Urine 0.2 mg/dL (<2.0)
[2021-08-24 05:03] LABS: Hyaline Casts Urine 50+ /lpf; Mucus Urine Rare /lpf; RBC Urine 0-2 /hpf (0-2); Squamous Epithelial Cell Urine Occasional /hpf (Few); WBC Urine 0-3 /hpf
[2021-08-24 05:04] LABS: Add Urine Microscopic? YES
[2021-08-24 05:08] LABS: Troponin I 0.023 ng/mL (0.000-0.034)
[2021-08-24 05:48] LABS: Magnesium 2.3 mg/dL (1.6-2.3); Phosphorus 8.3 mg/dL (2.5-4.5)
[2021-08-24 05:53] LABS: Creatine Kinase 238 U/L (55-170)
[2021-08-24] MEDS: ONDANSETRON INJ 4 MG/2 ML VIAL IV PUSH (05:56)
[2021-08-24 07:28] LABS: Ethanol < 10 mg/dL (<10)
[2021-08-24 07:36] LABS: Amphetamine Screen Urine Negative (Negative); Barbiturate Screen Urine Negative (Negative); Benzodiazepines Screen Urine Negative (Negative); Cannabinoid Screen Urine Positive (Negative); Cocaine Screen Urine Negative (Negative); Methadone Screen Urine Negative (Negative); Opiate Screen Urine Negative (Negative); Phencyclidine Screen Urine Negative (Negative)
[2021-08-24 07:57] LABS: SARS-CoV-2 RNA PCR Negative
[2021-08-24] MEDS: SODIUM CHLORIDE 0.9% IV 1,000 ML 125 ML IV CONT ×2 (09:42→17:31)
--- NOTE | 2021-08-24 16:47 | PM.IMHP ---
H&P: HPI History of Present Illness Date/Time: 08/24/21 16:47 Chief Complaint: nausea vomiting and abdominal and muscular cramping Narrative: HPI narrative: 41-year-old male with previous history of KAN presented to the emergency department for evaluation of symptoms of dehydration including nausea vomiting and abdominal and muscular cramping.? Patient states that he was working outside from [employer] secondary to 130.? When he stopped working at approximately 130 he had onset of the nausea vomiting cramping.? Patient states he has been attempting to drink water but due to the emesis he has not been able to keep down water.? Patient states that his cramping symptoms have persisted. patient states since arrival in emergency and being hydrated his symptoms have improved is not as nauseated and muscle cramping is also improved upon arrival his BUN and creatinine was 39/2.60 most likely secondary to dehydration, will continue to hydrate and monitor kidney function to further evaluate do the kidney ultrasound, patient admitted as observation status Review of Systems Review of Systems: CONSTITUTIONAL: Denies fever, chills, or sweats. EYES: Denies visual changes, redness, or discharge. ENT: Denies rhinorrhea, congestion, sore throat, or otalgia. CARDIOVASCULAR: Denies chest pain, palpitations, or edema. RESPIRATORY: Denies cough or dyspnea. GASTROINTESTINAL: Denies abdominal pain, nausea, vomiting, or diarrhea. GENITOURINARY: Denies dysuria or hematuria. SKIN: Denies rash or itching. MUSCULOSKELETAL: See HPI NEUROLOGIC: Denies headache, numbness, or weakness. [facility] Past Medical History Medical History Alcohol abuse Allergies Anxiety Bipolar disorder Depression Heat exhaustion Hepatitis C Treated many years ago when he lived in [place]. Nicotine dependence Posttraumatic stress disorder Rhabdomyolysis Transaminitis Surgical History Surgical History No history of previous surgery Family History Family History (Updated 08/09/21 @ 10:11 by Ariadne Lewis CMA) Father Diabetes mellitus Drug abuse Depression Anxiety Alcoholism Hypertension Heart problem Mother Alcoholism Depression Anxiety Grandparent Carcinoma of colon Social History Social History (Updated 07/20/21 @ 01:59 by Myah Wells DO) Social History: The patient lives in [place] with his dog. 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 Smokes about 1.5-2 packs of cigarettes a day since he was a teenager. Occasional marijuana use. He has had problems with alcohol for quite some time and was sober for nearly 5 years but began drinking again about 4 years ago. He reports that he drinks about 6 tall boys a night. In the past he has drank up to 2 pt of vodka a night. He has 1 son who is 20 years old and that he has contact with. He has a 12-year-old daughter that he does not see. Surrogate decision maker: Mason Mac (friend) Code status: Full code. Smoking packs per day: 1.5 Smoking cigarettes per day: 30.0 Years smoked: 30 Smoking pack-years: 45.00 Smoking status: Current every day smoker Tobacco type: cigarettes Second hand tobacco smoke exposure: No Alcohol intake: current Drinks per week: 12 Substance use: current Substance use type: marijuana Last use: 08/23/2021 Spiritual care concerns: No Meds Home Medications and Allergies Home Medications Medication Instructions Recorded Confirmed Type escitalopram oxalate 20 mg tablet 20 mg PO DAILY #90 tabs 08/09/21 08/24/21 Rx (Lexapro) Allergies Allergy/AdvReac Type Severity Reaction Status Date / Time No Known Allergies Allergy Mild Verified 08/24/21 03:18 Vital Signs Vital Signs - 24 hr 08/24/21 03:11 08/24/21 03:16 08/24/21 03:18 Temperature Pulse Rate 97 93 98 Respiratory Rate 15 19 Blood Pressure 11
[2021-08-24 17:51] LABS: Albumin Level 4.1 g/dL (3.5-5.1); Anion Gap 5 mmol/L (8-16); Blood Urea Nitrogen 23 mg/dL (9-20); Calcium 8.3 mg/dL (8.4-10.2); Carbon Dioxide 21 mmol/L (22-30); Chloride 110 mmol/L (98-107); Estimated CRCL calculation 87 ml/min; Estimated Glomerular Filt Rate > 60; Glucose 102 mg/dL (65-110); Phosphorus 3.1 mg/dL (2.5-4.5); Sodium 136 mmol/L (137-145)
[2021-08-25] MEDS: SODIUM CHLORIDE 0.9% IV 1,000 ML 125 ML IV CONT (03:06)
[2021-08-25 06:00] VITALS: BP 122/60; PULSE 50; RESP 18; TEMP 36.4; O2SAT 99
[2021-08-25 06:35] LABS: Hematocrit 36.1 % (42.0-52.0); Hemoglobin 12.3 g/dL (14.0-18.0); Mean Corpuscular HGB Conc 34.1 g/dl (32-36); Mean Corpuscular Hemoglobin 33.1 pg (26-34); Mean Platelet Volume 11.4 fl (7.4-10.4); Platelet Count Result 146 k/mm3 (150-375); Red Blood Count 3.72 M/mm3 (4.6-6.20); Red Cell Distribution Width 12.9 % (11.5-14.5); White Blood Count 7.5 K/mm3 (4.5-10.0)
[2021-08-25 06:50] LABS: Albumin Level 3.9 g/dL (3.5-5.1); Anion Gap 4 mmol/L (8-16); Blood Urea Nitrogen 16 mg/dL (9-20); Calcium 8.6 mg/dL (8.4-10.2); Carbon Dioxide 24 mmol/L (22-30); Chloride 110 mmol/L (98-107); Estimated CRCL calculation 105 ml/min; Estimated Glomerular Filt Rate > 60; Glucose 93 mg/dL (65-110); Phosphorus 2.1 mg/dL (2.5-4.5); Potassium 4.5 mmol/L (3.4-5.0); Sodium 138 mmol/L (137-145)
[2021-08-25] MEDS: POTASSIUM/PHOSPHORUS/SODIUM 1.5 GM PACKET 1 PACKET PO (09:39)
[2021-08-25 11:30] VITALS: PULSE 60; O2SAT 98
--- NOTE | 2021-08-25 14:28 | PM.DS ---
DS: Admitting Diagnosis Discharge Date 08/25/2021 Admitting Diagnosis nausea vomiting and abdominal and muscular cramping DS: Discharge Diagnosis Discharge Diagnosis (1) KAN (acute kidney injury): Code(s): N17.9 - Acute kidney failure, unspecified Status: Acute Assessment and Plan: HPI narrative: 41-year-old male with previous history of KAN presented to the emergency department for evaluation of symptoms of dehydration including nausea vomiting and abdominal and muscular cramping.? Patient states that he was working outside from [employer] secondary to 130.? When he stopped working at approximately 130 he had onset of the nausea vomiting cramping.? Patient states he has been attempting to drink water but due to the emesis he has not been able to keep down water.? Patient states that his cramping symptoms have persisted. patient states since arrival in emergency and being hydrated his symptoms have improved is not as nauseated and muscle cramping is also improved upon arrival his BUN and creatinine was 39/2.60 most likely secondary to dehydration, will continue to hydrate and monitor kidney function to further evaluate do the kidney ultrasound, (2) Dehydration symptoms: Code(s): R63.8 - Other symptoms and signs concerning food and fluid intake Status: Acute Assessment and Plan: most likely secondary to working outside in heat will gently hydrate the patient and monitor (3) Bipolar disorder: Code(s): F31.9 - Bipolar disorder, unspecified Status: Chronic DS: Summary Hospital Course Reason for hospitalization: Chief Complaint: nausea vomiting and abdominal and muscular cramping Narrative: HPI narrative: 41-year-old male with previous history of KAN presented to the emergency department for evaluation of symptoms of dehydration including nausea vomiting and abdominal and muscular cramping.? Patient states that he was working outside from heat.? When he stopped working at approximately 130 he had onset of the nausea vomiting cramping.? Patient states he has been attempting to drink water but due to the emesis he has not been able to keep down water.? Patient states that his cramping symptoms have persisted. ?patient states since arrival in emergency and being hydrated his symptoms have improved is not as nauseated and muscle cramping is also improved upon arrival his? BUN and creatinine was 39/2.60? most likely secondary to dehydration,? will continue to hydrate and monitor kidney function to further evaluate do the kidney ultrasound, ?patient admitted as observation status Hospital Course: patient presented with a dehydration secondary to heat stroke patient was hydrated this morning patient is feeling much better his symptoms have improved, upon arrival patient be a was 44 and creatinine 3.9, this morning BUN is 25 and creatinine is 1.10, patient is clinically stable will discharge the patient with instruction to avoid excess heat and hydrate himself. Time Spent with Patient Time attestation: Total time spent providing and/or coordinating discharge services: Exam Narrative: Patient is comfortable, NAD HEENT: eyes are clear and none icteric LUNGS: normal respiratory efforts ABD: not distended Lower extremities: no edema SKIN: nonjaundiced Neuro: grossly intact. DS: Data Data Completed and Pending Labs on day of discharge: Labs from last 24 hours 08/25/21 08/25/21 08/24/21 05:53 05:53 17:19 WBC 7.5 RBC 3.72 L Hgb 12.3 L Hct 36.1 L MCV 97.0 MCH 33.1 MCHC 34.1 RDW 12.9 Plt Count 146 L MPV 11.4 H Sodium 138 136 L Potassium 4.5 5.0 Chloride 110 H 110 H Carbon Dioxide 24 21 L Anion Gap 4 L 5 L BUN 16 23 H D Creatinine 0.90 1.10 Estim Creat Clear Calc 105 87 Estimated GFR > 60 > 60 Glucose 93 102 Calcium 8.6 8.3 L Phosphorus 2.1 L 3.1 Magnesium 2.0 Albumin 3.9 4.1 Discharge P
== END 2021-08-25 15:02 | disposition home or self-care (01) ==
LOC: ANHED 04:04 → ANH3MEDSUR 08:18
PROVIDERS: Admitting Provider Internal Medicine; Emergency Provider Emergency Medicine; Visit Provider Family Medicine
DX: N17.9 Acute kidney failure, unspecified (principal); R25.2 Cramp and spasm; R11.2 Nausea with vomiting, unspecified; F31.9 Bipolar disorder, unspecified; F43.10 Post-traumatic stress disorder, unspecified; F41.9 Anxiety disorder, unspecified; F17.210 Nicotine dependence, cigarettes, uncomplicated; F12.90 Cannabis use, unspecified, uncomplicated; Z86.19 Personal history of other infectious and parasitic diseases; Z20.822 Contact with and (suspected) exposure to COVID-19
CPT/HCPCS: 36415; 80053; 80069; 80307; 81001; 82550; 83605; 83735; 84100; 84484; 85025; 85027; 93005; 96360; 96361; 96374; 99285; A9270; C9803; G0378; G0379; J2405; J7030; U0003; U0005

== ENCOUNTER 2021-08-30 13:00 | Inpatient (IN) | payer BC, SELFPAY ==
[2021-08-30] VITALS (7 sets, daily range): BP systolic 133–134; BP diastolic 74–78; PULSE 86–129; RESP 13–18; TEMP 36.4–36.6; O2SAT 99–100
--- NOTE | ~2021-08-30 | US_ITS ---
EXAMINATION: US renal BI DATE: 08/31/2021 09:46 INDICATION: Acute kidney injury. TECHNIQUE: Multiple ultrasound grayscale images of the kidneys were obtained. COMPARISON: CT abdomen and pelvis 09/30/2020 FINDINGS: The right kidney measures 11.9 x 5.0 x 5.3 cm. The left kidney measures 11.7 x 5.5 x 4.8 cm. The kidn eys demonstrate normal parenchymal echogenicity. There is no hydronephrosis. The bladder is normal. IMPRESSION: 1. Normal kidney sizes. No hydronephrosis. Reviewed, dictated and finalized at location A.
--- NOTE | ~2021-08-30 | US_ITS ---
EXAMINATION: US abdomen limited DATE: 08/31/2021 09:45 INDICATION: Abnormal liver function tests. TECHNIQUE: Multiple grayscale and Doppler ultrasound images of the abdomen were obtained. COMPARISON: CT abdomen and pelvis 09/30/2020 FINDINGS: The visualized portions of the head and body of the pancreas are normal. The liver is francine l without focal lesion. There is normal flow in main portal vein. The gallbladder is normal in size. No gallstones or gallbladder wall thickening. There was no sonographic Gama sign. The common duct i s normal and measures 6 mm. IMPRESSION: 1. No etiology for abnormal liver function tests. Reviewed, dictated and finalized at location A.
--- NOTE | 2021-08-30 14:03 | ED.GENADULT ---
HPI - General Adult General Chief complaint: Unspecified Stated complaint: body cramps Time Seen by Provider: 08/30/21 13:14 History of Present Illness HPI narrative: 41-year-old male presents to the emergency room for evaluation of muscle cramps. 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 Cramps are located in his right lateral/axillary side of his chest. States that he was recently hospitalized for acute kidney injury spent 2 days in the hospital. Denies nausea vomiting. Denies headache. Admits to 12+ EtOH drinks daily Related Data Allergies Allergy/AdvReac Type Severity Reaction Status Date / Time No Known Allergies Allergy Mild Verified 08/30/21 14:19 Review of Systems Review of Systems: CONSTITUTIONAL: Denies fever, chills, or sweats. EYES: Denies visual changes, redness, or discharge. ENT: Denies rhinorrhea, congestion, sore throat, or otalgia. CARDIOVASCULAR: Denies chest pain, palpitations, or edema. RESPIRATORY: Denies cough or dyspnea. GASTROINTESTINAL: Denies abdominal pain, nausea, vomiting, or diarrhea. GENITOURINARY: Denies dysuria or hematuria. SKIN: Denies rash or itching. MUSCULOSKELETAL: Reports muscle cramping NEUROLOGIC: Denies headache, numbness, dizziness, or weakness. PSYCHIATRIC: Denies anxiety or depression. [facility] Past Medical History Medical History (Updated 08/30/21 @ 17:37 by Diego Hahn APRN) Alcohol abuse Allergies Anxiety Bipolar disorder Depression Heat exhaustion Hepatitis C Treated many years ago when he lived in [place]. Nicotine dependence Posttraumatic stress disorder Rhabdomyolysis Transaminitis Surgical History Surgical History No history of previous surgery Family History Family History Father Diabetes mellitus Drug abuse Depression Anxiety Alcoholism Hypertension Heart problem Mother Alcoholism Depression Anxiety Grandparent Carcinoma of colon Social History Social History (Updated 08/30/21 @ 17:12 by Ca Bustamante APRN) Social History: The patient lives in [place] with his dog. He has had problems with alcohol for quite some time and was sober for nearly 5 years but began drinking again about 4 years ago. He has 1 son who is 20 years old and that he has contact with. He has a 12-year-old daughter that he does not see. Surrogate decision maker: Mason Mac (friend) Code status: Full code. Smoking packs per day: 1.5 Smoking cigarettes per day: 30.0 Years smoked: 30 Smoking pack-years: 45.00 Smoking status: Current every day smoker Tobacco type: cigarettes Second hand tobacco smoke exposure: No Alcohol intake: current Drinks per week: 12 Alcohol use details: 8-10 beers, 1/2 to 1 pint vodka per day. 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 HEAD: Normocephalic, atraumatic. EYES: Conjunctivae normal, PERRLA and EOMI. ENT: External nose normal, Nares clear, no rhinorrhea or epistaxis. Mucous membranes dry. NECK: Supple. No meningeal signs. No adenopathy or masses. No carotid bruits or JVD CHEST: Clear to auscultation. No respiratory distress. No wheezes rales or rhonchi. No tenderness. HEART: Tachycardic rate and regular rhythm. No murmur heard. Normal peripheral pulses. ABDOMEN: Soft, nontender, nondistended, normal active bowel sounds. BACK: No CVA tenderness; No cervical/thoracic/lumbar tenderness, step-offs, bony abnormality; FROM EXT
[2021-08-30 14:07] LABS: Basophils Absolute Auto 0.1 K/mm3 (0.0-0.1); Basophils Percent Auto 0.4 % (0.2-1.2); Eosinophils Percent Auto 0.1 % (0-4.4); Hematocrit 49.5 % (42.0-52.0); Hemoglobin 17.2 g/dL (14.0-18.0); Immature Granulocyte Absolute 0.06 K/mm3 (0.00-0.031); Immature Granulocyte Percent A 0.4 % (0-0.5); Lymphocytes Absolute Auto 2.27 K/mm3 (0.9-3.2); Lymphocytes Percent Auto 16.3 % (18.3-44.2); Mean Corpuscular HGB Conc 34.7 g/dl (32-36); Mean Corpuscular Hemoglobin 32.4 pg (26-34); Mean Corpuscular Volume 93.2 fl (80-100); Mean Platelet Volume 11.3 fl (7.4-10.4); Monocytes Absolute Auto 1.1 K/mm3 (0.1-0.6); Monocytes Percent Auto 7.5 % (2.6-8.5); Neutrophils Absolute Auto 10.5 K/mm3 (1.3-6.7); Neutrophils Percent Auto 75.3 % (45.5-73.1); Platelet Count Result 261 k/mm3 (150-375); Red Blood Count 5.31 M/mm3 (4.6-6.20); Red Cell Distribution Width 12.9 % (11.5-14.5); White Blood Count 13.9 K/mm3 (4.5-10.0)
[2021-08-30] MEDS: SODIUM CHLORIDE 0.9% IV 1,000 ML 999 ML IV CONT ×2 (14:19→15:04)
[2021-08-30 14:20] LABS: Creatine Kinase 339 U/L (55-170)
[2021-08-30 14:27] LABS: Hyaline Casts Urine 50+ /lpf; Mucus Urine Few /lpf; RBC Urine 0-2 /hpf (0-2); Squamous Epithelial Cell Urine Few /hpf (Few); WBC Urine 0-3 /hpf
[2021-08-30 14:42] LABS: Appearance Urine Slightly Cloudy (Clear); Bilirubin Urine Negative (Negative); Color Urine Yellow (Yellow); Glucose Urine UA Negative (Negative); Ketones Urine Trace mg/dL (Negative); Leukocyte Esterase Ur Negative LEU/UL (Negative); Nitrate Urine Negative (Negative); Protein Urine 2+ mg/dL (Negative); Specific Grav Ur >= 1.030 (1.001-1.035); Urobilinogen Urine 0.2 mg/dL (<2.0)
[2021-08-30 14:44] LABS: Add Urine Microscopic? YES; Blood Urine Trace-Intact (Negative)
[2021-08-30 14:51] LABS: Alanine Aminotransferase 68 U/L (6-50); Alkaline Phosphatase 149 U/L (38-126); Anion Gap 24 mmol/L (8-16); Aspartate Amino Transferase 56 U/L (17-59); Bilirubin,Total 0.5 mg/dL (0.2-1.3); Blood Urea Nitrogen 44 mg/dL (9-20); Calcium 10.5 mg/dL (8.4-10.2); Carbon Dioxide 24 mmol/L (22-30); Chloride 87 mmol/L (98-107); Estimated CRCL calculation 25 ml/min; Estimated Glomerular Filt Rate 17; Glucose 128 mg/dL (65-110); Potassium 3.8 mmol/L (3.4-5.0); Sodium 135 mmol/L (137-145)
[2021-08-30 14:55] LABS: Albumin Level > 6.0 g/dL (3.5-5.1)
[2021-08-30] MEDS: SODIUM CHLORIDE 0.9% IV 1,000 ML 125 ML IV CONT ×2 (15:40→23:48)
[2021-08-30 15:58] LABS: SARS-CoV-2 RNA PCR Negative
--- NOTE | 2021-08-30 16:26 | PM.IMHP ---
H&P: HPI History of Present Illness Date/Time: 08/30/21 16:26 Chief Complaint: Muscle cramps Narrative: Lm Kline is a 41 yo male with medical history of chronic alcohol use, anxiety, Hepatitis C, bipolar disorder, tobacco dependence, PTSH and prior episodes of heat exhaustion. 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 Yesterday, he started having muscle aches and cramps all over to arms, legs, trunk and lower back. He does have chronic lower back pain due to his work and takes Aleve 500 mg twice daily several times per week. He reports associated nausea, vomiting, and no urine output from yesterday afternoon until arriving at the ED. His emesis is nonbloody. No diarrhea, paresthesia, chest pain, SOB, dysuria or headaches. He does report drinking 6 bottles of water and at least 2 bottles of Gatorade yesterday to stay hydrated. He was recently hospitalized for KAN this month were he spent 2 days in the hospital. He reports chronic alcohol intake at least 8-12 beers per day and one-half to one pint of vodka per day, everyday. His last drink was a pint of vodka this morning. In the ED, he was tachycardic with HR 129 bpm, BP 134/78, T 36.6C, RR 16 and spO2 100% on room air. Lab work showed mild leukocytosis, 13.9, sodium 135, K 3.8, chloride 87, CK 338, BUN 44, creatinine 3.9 and GFR 17. His renal function on 08/25/21 on the day of discharge showed BUN 16, creatinine 0.9, and BUN >60. Renal US on 10/01/20 was without abnormality. He was treated with 2 liters of NS fluids. He will be admitted for KAN and IV hydration. Review of Systems Review of Systems: All systems reviewed & are unremarkable except as noted in HPI and below PMFSH Past Medical History Medical History (Updated 08/30/21 @ 17:29 by Ca Bustamante, SPRAY DRIER OPERATOR) Alcohol abuse Allergies Anxiety Bipolar disorder Depression Heat exhaustion Hepatitis C Treated many years ago when he lived in [place]. Nicotine dependence Posttraumatic stress disorder Rhabdomyolysis Transaminitis Surgical History Surgical History No history of previous surgery Family History Family History Father Diabetes mellitus Drug abuse Depression Anxiety Alcoholism Hypertension Heart problem Mother Alcoholism Depression Anxiety Grandparent Carcinoma of colon Social History Social History (Updated 08/30/21 @ 17:12 by Ca Bustamante APRN) Social History: The patient lives in [place] with his dog. He has had problems with alcohol for quite some time and was sober for nearly 5 years but began drinking again about 4 years ago. He has 1 son who is 20 years old and that he has contact with. He has a 12-year-old daughter that he does not see. Surrogate decision maker: Mason Mac (friend) Code status: Full code. Smoking packs per day: 1.5 Smoking cigarettes per day: 30.0 Years smoked: 30 Smoking pack-years: 45.00 Smoking status: Current every day smoker Tobacco type: cigarettes Second hand tobacco smoke exposure: No Alcohol intake: current Drinks per week: 12 Alcohol use details: 8-10 beers, 1/2 to 1 pint vodka per day. 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
--- NOTE | 2021-08-30 17:54 | ADMGEN ---
This patient, Lm Kline, was admitted to [facility] Surg Room 321-01. Patient/family oriented to hospital policies and general routines including ID bracelet, bed and alarms, visiting hours, pain management, procedures, bathroom and other care routines, personal items, smoking policy, room service/diet, and visiting hours. Information on how to activate the Rapid Response Team has been discussed. Patient/Family are encouraged to report perceived risks to care and to ask questions if they do not understand what they are told or what they should do.
[2021-08-30 18:20] LABS: Creatine Kinase 339 U/L (55-170)
[2021-08-30 18:21] LABS: Ethanol < 10 mg/dL (<10); Magnesium 2.2 mg/dL (1.6-2.3)
[2021-08-30] MEDS: NICOTINE (*PBKC) 21 MG PATCH 1 PATCH TRANSDERM (18:28)
[2021-08-30] MEDS: chlordiazePOXIDE (*CRX) 25 MG CAPSULE PO ×2 (18:28→23:48)
[2021-08-30] MEDS: HEPARIN SODIUM 5,000 UNITS/ML VIAL 5000 UNITS SUB-Q (20:00)
[2021-08-31] VITALS: PULSE 82
[2021-08-31 04:00] VITALS: PULSE 66
[2021-08-31] MEDS: chlordiazePOXIDE (*CRX) 25 MG CAPSULE PO ×2 (05:10→11:57)
[2021-08-31] MEDS: HEPARIN SODIUM 5,000 UNITS/ML VIAL 5000 UNITS SUB-Q (05:10)
[2021-08-31 05:58] VITALS: BP 117/77; PULSE 58; RESP 16; TEMP 36.2; O2SAT 100
[2021-08-31 06:18] LABS: Basophils Absolute Auto 0.1 K/mm3 (0.0-0.1); Basophils Percent Auto 0.7 % (0.2-1.2); Eosinophils Absolute Auto 0.2 K/mm3 (0-0.3); Eosinophils Percent Auto 1.8 % (0-4.4); Hematocrit 38.8 % (42.0-52.0); Immature Granulocyte Absolute 0.02 K/mm3 (0.00-0.031); Immature Granulocyte Percent A 0.2 % (0-0.5); Lymphocytes Absolute Auto 2.29 K/mm3 (0.9-3.2); Lymphocytes Percent Auto 26.9 % (18.3-44.2); Mean Corpuscular HGB Conc 33.5 g/dl (32-36); Mean Corpuscular Hemoglobin 32.3 pg (26-34); Mean Corpuscular Volume 96.3 fl (80-100); Mean Platelet Volume 11.2 fl (7.4-10.4); Monocytes Absolute Auto 0.9 K/mm3 (0.1-0.6); Monocytes Percent Auto 10.7 % (2.6-8.5); Neutrophils Absolute Auto 5.1 K/mm3 (1.3-6.7); Neutrophils Percent Auto 59.7 % (45.5-73.1); Platelet Count Result 141 k/mm3 (150-375); Red Blood Count 4.03 M/mm3 (4.6-6.20); Red Cell Distribution Width 12.7 % (11.5-14.5); White Blood Count 8.5 K/mm3 (4.5-10.0)
[2021-08-31 06:47] LABS: Alanine Aminotransferase 36 U/L (6-50); Albumin Level 4.3 g/dL (3.5-5.1); Alkaline Phosphatase 96 U/L (38-126); Anion Gap 7 mmol/L (8-16); Aspartate Amino Transferase 48 U/L (17-59); Bilirubin,Total 1.1 mg/dL (0.2-1.3); Blood Urea Nitrogen 25 mg/dL (9-20); Calcium 8.5 mg/dL (8.4-10.2); Carbon Dioxide 28 mmol/L (22-30); Chloride 101 mmol/L (98-107); Creatine Kinase 269 U/L (55-170); Estimated CRCL calculation 86 ml/min; Estimated Glomerular Filt Rate > 60; Glucose 97 mg/dL (65-110); Potassium 3.7 mmol/L (3.4-5.0); Sodium 136 mmol/L (137-145)
[2021-08-31] MEDS: SODIUM CHLORIDE 0.9% IV 1,000 ML 125 ML IV CONT (07:39)
[2021-08-31 07:40] VITALS: BP 117/77; PULSE 58
[2021-08-31 07:42] VITALS: PULSE 58; RESP 16; O2SAT 100
[2021-08-31 08:00] VITALS: PULSE 62
[2021-08-31] MEDS: FOLIC ACID 1 MG TABLET PO (09:06)
[2021-08-31] MEDS: THIAMINE HCL 100 MG TABLET PO (09:06)
[2021-08-31] MEDS: NICOTINE (*PBKC) 21 MG PATCH 1 PATCH TRANSDERM (09:06)
--- NOTE | 2021-08-31 11:38 | P.DS_ITS ---
DS: Admitting Diagnosis Discharge Date 08/31/2021 Admitting Diagnosis KAN Dehydration Elevated CK Elevated LFTs History of hepatitis-C Bipolar Nicotine dependence Alcohol dependence DS: Discharge Diagnosis Discharge Diagnosis (1) KAN (acute kidney injury): Code(s): N17.9 - Acute kidney failure, unspecified Status: Acute Assessment and Plan: BUN 44, creatinine 3.9, GFR 17. 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 * Continue IV hydration NS@125 mL/hour. * Trend renal function. * Electrolytes: sodium 135, calcium 10.5, chloride 87 consistent with dehydration. K 3.8 and stable. * Avoid nephrotoxic agents such as aspirin and aleve. (2) Dehydration symptoms: Code(s): R63.8 - Other symptoms and signs concerning food and fluid intake Status: Acute Assessment and Plan: * As above. (3) Alcohol abuse: Code(s): F10.10 - Alcohol abuse, uncomplicated Status: Chronic Assessment and Plan: Daily alcohol intake as above. He is interested in quitting. * CIWA monitoring Q4 hours. * Valium 5 mg IV CIWA>8 but <15; Valium 10 mg IV CIWA>15 * Start Librium 25 mg Q6 hours. * Start thiamine 100 mg PO daily and folic acid 1 mg PO daily. * Consult patient care associate for alcohol cessation resources. * CAGE score 3. (4) Elevated CK: Code(s): R74.8 - Abnormal levels of other serum enzymes Status: Acute Assessment and Plan: CK 338. Renal function elevated. C/o muscle cramps. * Trend CK * Continue IVF as above. * Monitor renal function. 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 * CMP in am after hydration. * Liver US in am. * He was counseled on quitting drinking. * He reports treatment for Hep C 3 years ago with recent test normal for follow-up. (6) History of hepatitis C: Code(s): Z86.19 - Personal history of other infectious and parasitic diseases Status: Chronic Assessment and Plan: He reports treatment for Hep C with [facility]. To be aware. (7) Bipolar disorder: Code(s): F31.9 - Bipolar disorder, unspecified Status: Chronic Assessment and Plan: * Continue home medications. (8) Nicotine dependence: Qualifiers: Nicotine product type: cigarettes Substance use status: in withdrawal Qualified Code(s): F17.213 - Nicotine dependence, cigarettes, with withdrawal Code(s): F17.200 - Nicotine dependence, unspecified, uncomplicated Status: Chronic Assessment and Plan: * Counseled to quit * Nicotine patch while inpatient. (9) PTSD (post-traumatic stress disorder): Code(s): F43.10 - Post-traumatic stress disorder, unspecified Status: Chronic Assessment and Plan: Post incarceration. Continue home medications. Plan Disposition: Home when medically stable. Estimated LOS: 3 days. CODE STATUS: FULL CODE. DS: Summary Hospital Course Reason for hospitalization: Elevated CK Dehydration Heat exhaustion Hospital Course: Patient is a 41-year-old male with medical history of chronic alcohol abuse, anxiety, hepatitis-C, bipolar disorder, tobacco dependence, PT ST and prior episodes of heat exhau
--- NOTE | 2021-08-31 11:38 | PM.DS ---
DS: Admitting Diagnosis Discharge Date 08/31/2021 Admitting Diagnosis KAN Dehydration Elevated CK Elevated LFTs History of hepatitis-C Bipolar Nicotine dependence Alcohol dependence DS: Discharge Diagnosis Discharge Diagnosis (1) KAN (acute kidney injury): Code(s): N17.9 - Acute kidney failure, unspecified Status: Acute Assessment and Plan: BUN 44, creatinine 3.9, GFR 17. 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 Continue IV hydration NS@125 mL/hour. Trend renal function. Electrolytes: sodium 135, calcium 10.5, chloride 87 consistent with dehydration. K 3.8 and stable. Avoid nephrotoxic agents such as aspirin and aleve. (2) Dehydration symptoms: Code(s): R63.8 - Other symptoms and signs concerning food and fluid intake Status: Acute Assessment and Plan: As above. (3) Alcohol abuse: Code(s): F10.10 - Alcohol abuse, uncomplicated Status: Chronic Assessment and Plan: Daily alcohol intake as above. He is interested in quitting. CIWA monitoring Q4 hours. Valium 5 mg IV CIWA>8 but <15; Valium 10 mg IV CIWA>15 Start Librium 25 mg Q6 hours. Start thiamine 100 mg PO daily and folic acid 1 mg PO daily. Consult nurse behavioral health care for alcohol cessation resources. CAGE score 3. (4) Elevated CK: Code(s): R74.8 - Abnormal levels of other serum enzymes Status: Acute Assessment and Plan: CK 338. Renal function elevated. C/o muscle cramps. Trend CK Continue IVF as above. Monitor renal function. 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 CMP in am after hydration. Liver US in am. He was counseled on quitting drinking. He reports treatment for Hep C 3 years ago with recent test normal for follow-up. (6) History of hepatitis C: Code(s): Z86.19 - Personal history of other infectious and parasitic diseases Status: Chronic Assessment and Plan: He reports treatment for Hep C with [facility]. To be aware. (7) Bipolar disorder: Code(s): F31.9 - Bipolar disorder, unspecified Status: Chronic Assessment and Plan: Continue home medications. (8) Nicotine dependence: Qualifiers: Nicotine product type: cigarettes Substance use status: in withdrawal Qualified Code(s): F17.213 - Nicotine dependence, cigarettes, with withdrawal Code(s): F17.200 - Nicotine dependence, unspecified, uncomplicated Status: Chronic Assessment and Plan: Counseled to quit Nicotine patch while inpatient. (9) PTSD (post-traumatic stress disorder): Code(s): F43.10 - Post-traumatic stress disorder, unspecified Status: Chronic Assessment and Plan: Post incarceration. Continue home medications. Plan Disposition: Home when medically stable. Estimated LOS: 3 days. CODE STATUS: FULL CODE. DS: Summary Hospital Course Reason for hospitalization: Elevated CK Dehydration Heat exhaustion Hospital Course: Patient is a 41-year-old male with medical history of chronic alcohol abuse, anxiety, hepatitis-C, bipolar disorder, tobacco dependence, PT ST and prior episodes of heat exhaustion. 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 Patient reports that he has been out in the heat for at least 8 hours on Sunday and daily prior to that. Patient reports he began having muscle aches and cramps all over his arms, legs and trunk as well as lower back. He did report having chronic back pain due to his work however he does take Aleve 500 mg twice daily several times per week to relieve this chronic pain. He does report associated nausea, vomiting and no urine output f
== END 2021-08-31 12:05 | disposition home or self-care (01) | DRG 469 ==
LOC: ANHED 15:25 → ANH3MEDSUR 17:37
PROVIDERS: Nurse Practitioner Family; Admitting Provider Internal Medicine; Emergency Provider Nurse Practitioner Family; Visit Provider Nurse Practitioner Family
DX: N17.9 Acute kidney failure, unspecified (principal); R74.8 Abnormal levels of other serum enzymes; R63.8 Other symptoms and signs concerning food and fluid intake; R79.89 Other specified abnormal findings of blood chemistry; Z86.19 Personal history of other infectious and parasitic diseases; F31.9 Bipolar disorder, unspecified; F17.213 Nicotine dependence, cigarettes, with withdrawal; F43.10 Post-traumatic stress disorder, unspecified; F10.20 Alcohol dependence, uncomplicated; R25.2 Cramp and spasm; Z79.899 Other long term (current) drug therapy
CPT/HCPCS: 36415; 76705; 76775; 80053; 80307; 81001; 82550; 83735; 85025; 96360; 99285; A9270; C9803; J1644; J7030; U0003; U0005